=== PATIENT | female | born 1960 | race Two or more races ===

== ENCOUNTER → 2019-12-08 08:15 | Outpatient (BNVA) | payer OTHER, SELFPAY | PROVIDERS: Visit Provider Physician Assistant | DX: E66.9 Obesity, unspecified (principal); Z68.34 Body mass index [BMI] 34.0-34.9, adult; Z71.3 Dietary counseling and surveillance | CPT/HCPCS: 99213 ==

== ENCOUNTER → 2020-01-10 08:13 | Outpatient (BNVA) | payer OTHER, SELFPAY | PROVIDERS: PCP Internal Medicine; Referring Provider Internal Medicine; Visit Provider Physician Assistant | DX: E66.01 Morbid (severe) obesity due to excess calories (principal); Z68.36 Body mass index [BMI] 36.0-36.9, adult | CPT/HCPCS: Q3014 ==

== ENCOUNTER → 2020-02-14 08:14 | Outpatient (BNVA) | payer OTHER, MEDICARE, SELFPAY | PROVIDERS: Visit Provider Physician Assistant | DX: E66.01 Morbid (severe) obesity due to excess calories (principal); Z68.36 Body mass index [BMI] 36.0-36.9, adult | CPT/HCPCS: Q3014 ==

== ENCOUNTER 2020-02-14 17:24 | Outpatient (REF) | payer OTHER, MEDICARE, SELFPAY | END 2020-02-14 17:25 | disposition home or self-care (01) | LOC: HO.LAB 17:24 | PROVIDERS: Visit Provider Internal Medicine | DX: Z20.828 Contact with and (suspected) exposure to other viral communicable diseases (principal) | CPT/HCPCS: C9803; U0003 ==

== ENCOUNTER → 2020-02-21 15:16 | Outpatient (BNVA) | payer OTHER, MEDICARE, SELFPAY | PROVIDERS: PCP Internal Medicine; Visit Provider Student in an Organized Health Care Education/Training Program | DX: Z13.89 Encounter for screening for other disorder (principal) | CPT/HCPCS: Q3014 ==

== ENCOUNTER 2020-03-19 14:30 | Emergency (ER) | payer OTHER, SELFPAY ==
--- NOTE | 2020-03-19 14:35 | ECG_ITS ---
Test Reason : CHEST PAIN Blood Pressure : / mmHG Vent. Rate : 081 BPM Atrial Rate : 081 BPM P-R Int : 154 ms QRS Dur : 072 ms QT Int : 374 ms P-R-T Axes : 045 -19 001 degrees QTc Int : 434 ms Normal sinus rhythm Voltage criteria for left ventricular hypertrophy Abnormal ECG When compared with ECG of 10-NOV-2018 14:59, Nonspecific T wave abnormality no longer evident in Lateral leads Referred By: Generic ED Physician Electronically Signed By:GARCIA VALDIVIA MD
[2020-03-19 15:03] VITALS: BP 163/86; PULSE 82; RESP 16; TEMP 36.6; O2SAT 96; BMI 36.1
--- NOTE | 2020-03-19 15:04 | XR_ITS ---
EXAMINATION: XR CHEST CLINICAL INFORMATION: Chest pain COMPARISON: None TECHNIQUE: Frontal view of the chest was obtained. FINDINGS: No significant abnormality is noted involving the heart, lungs, mediastinum, bony thorax or soft tissues. XR/XR chest 1V IMPRESSION: Unremarkable chest examination.
--- NOTE | 2020-03-19 15:06 | ED_ITS ---
HPI - Chest Pain General Chief Complaint: Chest Pain Stated Complaint: BACK AND CHEST PAIN Time Seen by Provider: 03/19/20 15:04 Related Data Home Medications Medication Instructions Recorded Confirmed ascorbic acid (vitamin C) 500 mg mg PO DAILY cap 12/08/19 02/14/20 capsule aspirin 81 mg tablet,delayed 81 mg PO DAILY 12/08/19 02/14/20 release cholecalciferol (vitamin D3) 25 25 mcg PO DAILY 12/08/19 02/14/20 mcg (1,000 unit) capsule lisinopril 2.5 mg tablet 2.5 mg PO DAILY 12/08/19 02/14/20 loratadine 10 mg tablet 10 mg PO DAILY 12/08/19 02/14/20 simvastatin 10 mg tablet 10 mg PO BEDTIME 12/08/19 02/14/20 sumatriptan succinate 100 mg tablet 100 mg PO Q2-4H PRN 12/08/19 02/14/20 thiamine HCl (vitamin B1) 100 mg 100 mg PO DAILY 12/08/19 02/14/20 tablet verapamil 100 mg capsule 24hr 100 mg PO BEDTIME 12/08/19 02/14/[address],ext.release fluticasone propionate 50 1 spray INTRANASAL DAILY 12/29/19 02/14/20 mcg/actuation nasal spray,suspension Previous Rx's Medication Instructions Recorded albuterol sulfate 90 mcg/actuation 2 puff PO Q4H PRN #8.5 g 01/19/20 aerosol inhaler montelukast 10 mg tablet 10 mg PO DAILY #90 tab 03/19/20 Allergies Allergy/AdvReac Type Severity Reaction Status Date / Time hydrochlorothiazide Allergy Intermediate TRIGGERED Verified 02/21/20 15:17 [Hydrochlorothiazide] ASTHMA shellfish derived Allergy Unknown ANAPHYLAXIS Verified 02/21/20 15:17 [SHELLFISH DERIVED] [facility] Past Medical History Medical History (Updated 02/21/20 @ 15:19 by Gilson Garrett MD) Arthritis Asthma Carpal tunnel syndrome GERD (gastroesophageal reflux disease) Hypercholesterolemia Hypertension Lumbago with sciatica, left side Lumbar degenerative disc disease Migraine Type 2 diabetes mellitus with hyperglycemia Vitamin D deficiency Surgical History H/O thumb surgery Hallux valgus of right foot History of carpal tunnel release of both wrists History of oophorectomy, unilateral History of removal of ovarian cyst Hx of AMYIK Family History Family History Father Diabetes Stroke Mother Myocardial infarction CVD (cerebrovascular disease) Stroke Diabetes Maternal Aunt Myocardial infarction CVD (cerebrovascular disease) Paternal Uncle Prostate cancer Social History Social History (Updated 02/21/20 @ 15:19 by Rand Matias CMA) Alcohol intake: never Smoking Status: Never smoker Physical Exam Vital Signs: Vital Signs: Last Vital Signs Temp 98 F 03/19/20 15:03 Pulse 82 03/19/20 15:03 Resp 16 03/19/20 15:03 BP 163/86 H 03/19/20 15:03 Pulse Ox 96 03/19/20 15:03 Body Mass Index 36.1 Course Course Course Narrative: Patient presents to the ED with back/neck/ left sided chest pain with pain on inspiration. Rapid medical screening will be done. EKG ordered. History, physical exam, and decision making will be done by ED provider. Discharge Plan Discharge Prescriptions: No Action albuterol sulfate 90 mcg/actuation HFA aerosol inhaler 2 puff PO Q4H PRN (Reason: shortness of breath or wheezing) Qty: 8.5 RF: 2 montelukast 10 mg tablet 10 mg PO DAILY Qty: 90 RF: 1 fluticasone propionate [Flonase Allergy Relief] 50 mcg/actuation spray,suspension 1 spray intranasal DAILY RF: 0 loratadine [Allergy Relief (loratadine)] 10 mg tablet 10 mg PO DAILY RF: 0 lisinopril 2.5 mg tablet 2.5 mg PO DAILY RF: 0 aspirin [Adult Low Dose Aspirin] 81 mg tablet,delayed release (DR/EC) 81 mg PO DAILY RF: 0 verapamil 100 mg capsule, [address] 100 mg PO BEDTIME RF: 0 sumatriptan succinate [Imitrex] 100 mg tablet 100 mg PO Q2-4H PRNRF: 0 simvastatin 10 mg tablet 10 mg PO BEDTIME RF: 0 cholecalciferol (vitamin D3) 25 mcg (1,000 unit) capsule 25 mcg PO DAILY RF: 0 thiamine HCl (vitamin B1) 100 mg tablet 100 mg PO DAILY RF: 0 ascorbic acid (vitamin C) 500 mg capsule PO DAILY RF: 0
[2020-03-19 15:42] LABS: MANUAL DIFF FLAG NO
[2020-03-19 15:44] LABS: Basophils Percent Auto 0.3 % (0-2); Eosinophils Absolute Auto 0.4 X10*3/uL (0.0-0.4); Eosinophils Percent Auto 4.2 % (0-4); Hematocrit 37.1 % (37-47); Hemoglobin 12.1 g/dl (12.0-16.0); Imm Gran Abs Auto 0.03 X10*3/uL (0.00-0.03); Imm Gran Pct Auto 0.3 % (0.0-0.4); Lymphocytes Absolute Auto 2.1 X10*3/uL (1.2-4.9); Lymphocytes Percent Auto 22.1 % (20-40); Mean Corpuscular HGB Conc 32.6 g/dl (31.0-35.0); Mean Corpuscular Hemoglobin 28.8 pg (27.0-33.0); Mean Corpuscular Volume 88.3 fL (80-98); Mean Platelet Volume 9.4 fL (9.4-12.3); Monocytes Absolute Auto 0.8 X10*3/uL (0.1-1.2); Monocytes Percent Auto 8.2 % (2-11); Neutrophils Absolute Auto 6.2 X10*3/uL (2.0-8.3); Neutrophils Percent Auto 64.9 % (45-73); Platelet Count 314 X10*3/uL (160-400); Red Cell Distribution Width 12.2 % (11.0-16.0); White Blood Count 9.6 X10*3/uL (4.8-10.8)
[2020-03-19 15:52] LABS: Prothrombin Time 12.2 SEC (10.8-13.0)
[2020-03-19 15:55] LABS: D Dimer < 200 NG/ML
[2020-03-19 16:15] LABS: Alanine Aminotransferase 12 U/L (0-31); Albumin Level 4.2 g/dL (3.5-5.0); Alkaline Phosphatase 78 U/L (39-117); Anion Gap 12 (12-20); Aspartate Amino Transferase 15 U/L (5-31); Bilirubin Direct 0.2 mg/dL (0.0-0.5); Bilirubin Total 0.4 mg/dL (0.0-1.0); Blood Urea Nitrogen 14 mg/dL (9-16); Calcium 8.7 mg/dL (8.4-10.2); Carbon Dioxide 28 mmol/L (22-29); Chloride 106 mmol/L (96-108); Creatinine Clr Calc Pharmacy 87.3; Estimated Glomerular Filt Rate > 60; Glucose Random 124 mg/dL (60-115); Lactate Dehydrogenase 162 U/L (122-220); Potassium 4.1 mmol/L (3.3-5.1); Sodium 142 mmol/L (135-145); Total Protein 6.9 g/dL (6.5-8.0)
[2020-03-19 16:18] LABS: B Type Natriuretic Peptide 40 pg/mL (<100); Troponin-I High Sensitivity 3.6 ng/L (<3.5-17.0)
[2020-03-19 16:33] LABS: Procalcitonin < 0.02 ng/mL
[2020-03-19 16:36] LABS: Ferritin 108 ng/mL (10-250)
[2020-03-19 18:05] VITALS: BP 137/81; PULSE 69; RESP 16; O2SAT 97
--- NOTE | 2020-03-19 18:54 | ED_ITS ---
HPI - Chest Pain General Chief Complaint: Chest Pain Stated Complaint: BACK AND CHEST PAIN Time Seen by Provider: 03/19/20 15:04 Source: patient Mode of arrival: ambulatory Limitations: no limitations History of Present Illness HPI narrative: Patient comes emergency room complaining of chest pain for the last 48 hours. Patient states she started with the left-sided shoulder pain, left-sided neck pain, radiating towards the left side of the back, and upper chest pain. Patient states it hurts more when she turns her head towards the right. Patient has no shortness of breath. Patient states that it hurts more if she moves her left arm as well. Patient denies diaphoresis, no vomiting, no abdominal pain, coughing. Related Data Home Medications Medication Instructions Recorded Confirmed ascorbic acid (vitamin C) 500 mg mg PO DAILY cap 12/08/19 02/14/20 capsule aspirin 81 mg tablet,delayed 81 mg PO DAILY 12/08/19 02/14/20 release cholecalciferol (vitamin D3) 25 25 mcg PO DAILY 12/08/19 02/14/20 mcg (1,000 unit) capsule lisinopril 2.5 mg tablet 2.5 mg PO DAILY 12/08/19 02/14/20 loratadine 10 mg tablet 10 mg PO DAILY 12/08/19 02/14/20 simvastatin 10 mg tablet 10 mg PO BEDTIME 12/08/19 02/14/20 sumatriptan succinate 100 mg tablet 100 mg PO Q2-4H PRN 12/08/19 02/14/20 thiamine HCl (vitamin B1) 100 mg 100 mg PO DAILY 12/08/19 02/14/20 tablet verapamil 100 mg capsule 24hr 100 mg PO BEDTIME 12/08/19 02/14/[address],ext.release fluticasone propionate 50 1 spray INTRANASAL DAILY 12/29/19 02/14/20 mcg/actuation nasal spray,suspension Previous Rx's Medication Instructions Recorded albuterol sulfate 90 mcg/actuation 2 puff PO Q4H PRN #8.5 g 01/19/20 aerosol inhaler baclofen 10 mg PO BID #10 tab 03/19/20 montelukast 10 mg tablet 10 mg PO DAILY #90 tab 03/19/20 Allergies Allergy/AdvReac Type Severity Reaction Status Date / Time hydrochlorothiazide Allergy Intermediate TRIGGERED Verified 02/21/20 15:17 [Hydrochlorothiazide] ASTHMA shellfish derived Allergy Unknown ANAPHYLAXIS Verified 02/21/20 15:17 [SHELLFISH DERIVED] Review of Systems Review of Systems: Constitutional : No Weight loss, No Fever, No Chills, No Night Sweats, No Fatigue, No Malaise ENT/Mouth : No Hearing loss, No Ear Pain, No Nasal Congestion, No Sinus Pain, No Hoarseness, No sore throat, No Rhinorrhea, No Swallowing Difficulty Eyes: No Eye Pain, No Swelling, No Redness, No Foreign Body, No Discharge, No Vision Changes Cardiovascular : Upper left-sided chest pain, No SOB, No Dyspnea on Exertion, No Orthopnea, No Edema, No Palpitations Respiratory : No Cough, No Sputum, No Wheezing, No Smoke Exposure, No Dyspnea Gastrointestinal : No Nausea, No Vomiting, No Diarrhea, No Constipation, No abdominal Pain, No Hematochezia, No Melena Genitourinary : no irregular bleeding, No Dysuria, No Urinary Frequency, No Hematuria, No Urinary Incontinence, No Urgency, No Flank Pain, No Urinary Flow Changes, No Hesitancy Musculoskeletal : No joint pain, complaining of left shoulder pain, left upper back pain, left neck pain, worse with movement and rotating head towards the right Skin : No Skin Lesions, No rash Neuro : No Weakness, No Numbness, No Paresthesias, No Loss of Consciousness, No Dizziness, No Headache Psych : No Anxiety/Panic, No Depression, No SI/HI/AH/VH, No Social Issues, Heme/Lymph: No Bruising, No Bleeding,No Lymphadenopathy Endocrine : No Polyuria, No Polydipsia, No Temperature Intolerance [facility] Past Medical History Medical History Arthritis Asthma Carpal tunnel syndrome GERD (gastroesophageal reflux disease) Hypercholesterolemia Hypertension Lumbago with sciatica, left side Lumbar degenerative disc disease Migraine Type 2 diabetes mellitus with hyperglycemia Vitamin D deficiency Surgical History H/O thumb surgery Hallux valgus of right foot History of carpal tunnel release of both wrists History of oophorectomy, unilateral History of removal of ovarian cyst Hx of LASIK Family History Family History (Reviewed 02/21/20 @ 15:18 by Rand Matias [facility]) Father Diabetes Stroke Mother Myocardial infarction CVD (cerebrovascular disease) Stroke Diabetes Maternal Aunt Myocardial infarction CVD (cerebrovascular disease) Paternal Uncle Prostate cancer Social History Social History (Updated 02/21/20 @ 15:19 by Rand Matias CMA) Alcohol intake: never Smoking Status: Never smoker Advance Directives: No Advance Directives Information Provided: Yes Physical Exam Vital Signs: Vital Signs: Last Vital Signs Temp 98 F 03/19/20 15:03 Pulse 69 03/19/20 18:05 Resp 16 03/19/20 18:05 BP 137/81 03/19/20 18:05 Pulse Ox 97 03/19/20 18:05 Body Mass Index 36.1 Appearance: Alert. Oriented X3. No acute distress. Eyes: Pupils equal, round and reactive to light. ENT: Pharynx normal. Neck: Normal inspection. Neck supple. No lymph nodes noted. No crepitus, pain to palpation over the sternocleidomastoid on the left side when head is rotated towards the right CVS: Normal heart rate and rhythm. Pulses normal. Normal S1 and S2 Respiratory: No respiratory distress. Breath sounds normal. No Wheezing. No rales Abdomen: Soft and nontender. No rigidity. No distention. good BS x4 Skin: Skin warm and dry. Normal skin color. Normal skin turgor. Extremities: No lower extremity edema. No lower extremity edema. No Lacerations. No Rash Neuro: Oriented X 3. No motor deficit. No sensory deficit. Moving all extermities. No slurred speech. Course Course Course Narrative: I discussed the labs and physical exam with the patient, patient's pain likely musculoskeletal/torticollis MDM - Chest Pain Lab Data Result diagrams: 03/19/20 15:38 03/19/20 15:37 Labs: Lab Results 03/19/20 03/19/20 03/19/20 Range/Units 15:37 15:37 15:37 WBC (4.8-10.8) X10*3/uL RBC (4.20-5.50) X10*6/uL Hgb (12.0-16.0) g/dl Hct (37-47) % MCV (80-98) fL MCH (27.0-33.0) pg MCHC (31.0-35.0) g/dl RDW (11.0-16.0) % Plt Count (160-400) X10*3/uL MPV (9.4-12.3) fL Immature Gran % (Auto) (0.0-0.4) % Neut % (Auto) (45-73) % Lymph % (Auto) (20-40) % Banks % (Auto) (2-11) % Eos % (Auto) (0-4) % Baso % (Auto) (0-2) % Lymph # (Auto) (1.2-4.9) X10*3/uL Banks # (Auto) (0.1-1.2) X10*3/uL Eos # (Auto) (0.0-0.4) X10*3/uL Baso # (Auto) (0.0-0.2) X10*3/uL Abs Immat Gran (auto) (0.00-0.03) X10*3/uL Absolute Neuts (auto) (2.0-8.3) X10*3/uL Absolute Nucleated RBC (0.0-0.012) X10*3/uL Nucleated RBC % (auto) (0.0-0.2) /100WBC PT 12.2 (10.8-13.0) SEC INR 1.0 (0.9-1.1) APTT 35.0 (24.1-38.0) SEC D-Dimer < 200 NG/ML Sodium 142 (135-145) mmol/L Potassium 4.1 (3.3-5.1) mmol/L Chloride 106 (96-108) mmol/L Carbon Dioxide 28 (22-29) mmol/L Anion Gap 12 (12-20) BUN 14 (9-16) mg/dL Creatinine 0.65 (0.5-1.4) mg/dL Estim Creat Clear Calc 87.3 Estimated GFR > 60 Random Glucose 124 H (60-115) mg/dL Calcium 8.7 (8.4-10.2) mg/dL Ferritin 108 (10-250) ng/mL Total Bilirubin 0.4 (0.0-1.0) mg/dL Direct Bilirubin 0.2 (0.0-0.5) mg/dL AST 15 (5-31) U/L ALT 12 (0-31) U/L Alkaline Phosphatase 78 (39-117) U/L Lactate Dehydrogenase 162 (122-220) U/L Troponin I High Sens 3.6 (<3.5-17.0) ng/L B-Natriuretic Peptide 40 (<100) pg/mL Total Protein 6.9 (6.5-8.0) g/dL Albumin 4.2 (3.5-5.0) g/dL Procalcitonin ng/mL 03/19/20 03/19/20 Range/Units 15:37 15:38 WBC 9.6 (4.8-10.8) X10*3/uL RBC 4.20 (4.20-5.50) X10*6/uL Hgb 12.1 (12.0-16.0) g/dl Hct 37.1 (37-47) % MCV 88.3 (80-98) fL MCH 28.8 (27.0-33.0) pg MCHC 32.6 (31.0-35.0) g/dl RDW 12.2 (11.0-16.0) % Plt Count 314 (160-400) X10*3/uL MPV 9.4 (9.4-12.3) fL Immature Gran % (Auto) 0.3 (0.0-0.4) % Neut % (Auto) 64.9 (45-73) % Lymph % (Auto) 22.1 (20-40) % Banks % (Auto) 8.2 (2-11) % Eos % (Auto) 4.2 H (0-4) % Baso % (Auto) 0.3 (0-2) % Lymph # (Auto) 2.1 (1.2-4.9) X10*3/uL Banks # (Auto) 0.8 (0.1-1.2) X10*3/uL Eos # (Auto) 0.4 (0.0-0.4) X10*3/uL Baso # (Auto) 0.0 (0.0-0.2) X10*3/uL Abs Immat Gran (auto) 0.03 (0.00-0.03) X10*3/uL Absolute Neuts (auto) 6.2 (2.0-8.3) X10*3/uL Absolute Nucleated RBC 0.000 (0.0-0.012) X10*3/uL Nucleated RBC % (auto) 0.0 (0.0-0.2) /100WBC PT (10.8-13.0) SEC INR (0.9-1.1) APTT (24.1-38.0) SEC D-Dimer NG/ML Sodium (135-145) mmol/L Potassium (3.3-5.1) mmol/L Chloride (96-108) mmol/L Carbon Dioxide (22-29) mmol/L Anion Gap (12-20) BUN (9-16) mg/dL Creatinine (0.5-1.4) mg/dL Estim Creat Clear Calc Estimated GFR Random Glucose (60-115) mg/dL Calcium (8.4-10.2) mg/dL Ferritin (10-250) ng/mL Total Bilirubin (0.0-1.0) mg/dL Direct Bilirubin (0.0-0.5) mg/dL AST (5-31) U/L ALT (0-31) U/L Alkaline Phosphatase (39-117) U/L Lactate Dehydrogenase (122-220) U/L Troponin I High Sens (<3.5-17.0) ng/L B-Natriuretic Peptide (<100) pg/mL Total Protein (6.5-8.0) g/dL Albumin (3.5-5.0) g/dL Procalcitonin < 0.02 ng/mL Imaging Data Chest x-ray: Radiologist's impression: FINDINGS: No significant abnormality is noted involving the heart, lungs, mediastinum, bony thorax or soft tissues. XR/XR chest 1V IMPRESSION: Unremarkable chest examination. ECG Data ECG #1: Attestation: I personally reviewed and interpreted this ECG as follows: (Sinus rhythm, heart rate 81, QTC 434, no ST segment depressions or elevations, nonspecific T-wave inversions in lead 3) Scores Heart Score History: -0- slightly suspicious ECG: -0- normal Age: -1- >45 - <65 Risk factory: -1- 1 or 2 risk factors Troponin: -0- < or = normal limit Score: 2 Risk: 1.7% Discharge Plan Discharge Clinical Impression: Atypical chest pain Patient Disposition: Home, Self-Care Instructions: Spasmodic Torticollis (ED) Additional Instructions: Please follow-up with your primary care physician tomorrow. If you have any worsening or new symptoms, please return to the emergency room or call 911 Prescriptions: New baclofen 10 mg tablet 10 mg PO BID Qty: 10 RF: 0 No Action albuterol sulfate 90 mcg/actuation HFA aerosol inhaler 2 puff PO Q4H PRN (Reason: shortness of breath or wheezing) Qty: 8.5 RF: 2 montelukast 10 mg tablet 10 mg PO DAILY Qty: 90 RF: 1 fluticasone propionate [Flonase Allergy Relief] 50 mcg/actuation spray,suspension 1 spray intranasal DAILY RF: 0 loratadine [Allergy Relief (loratadine)] 10 mg tablet 10 mg PO DAILY RF: 0 lisinopril 2.5 mg tablet 2.5 mg PO DAILY RF: 0 aspirin [Adult Low Dose Aspirin] 81 mg tablet,delayed release (DR/EC) 81 mg PO DAILY RF: 0 verapamil 100 mg capsule, [address] 100 mg PO BEDTIME RF: 0 sumatriptan succinate [Imitrex] 100 mg tablet 100 mg PO Q2-4H PRNRF: 0 simvastatin 10 mg tablet 10 mg PO BEDTIME RF: 0 cholecalciferol (vitamin D3) 25 mcg (1,000 unit) capsule 25 mcg PO DAILY RF: 0 thiamine HCl (vitamin B1) 100 mg tablet 100 mg PO DAILY RF: 0 ascorbic acid (vitamin C) 500 mg capsule PO DAILY RF: 0
[2020-03-19 19:43] VITALS: BP 143/87; PULSE 68; RESP 26; O2SAT 97
== END 2020-03-19 20:26 | disposition home or self-care (01) ==
PROVIDERS: Physician Assistant; Emergency Provider Emergency Medicine; PCP Internal Medicine
DX: R07.89 Other chest pain (principal); G24.3 Spasmodic torticollis; I10 Essential (primary) hypertension; E11.9 Type 2 diabetes mellitus without complications; J45.909 Unspecified asthma, uncomplicated; Z79.899 Other long term (current) drug therapy; Z79.82 Long term (current) use of aspirin
CPT/HCPCS: 36415; 71045; 80053; 80076; 82248; 82728; 83615; 83880; 84145; 84484; 85025; 85379; 85610; 85730; 93005; 99283

== ENCOUNTER → 2020-03-20 08:17 | Outpatient (BNVA) | payer OTHER, SELFPAY | PROVIDERS: PCP Internal Medicine; Visit Provider Physician Assistant | DX: E66.01 Morbid (severe) obesity due to excess calories (principal); Z68.36 Body mass index [BMI] 36.0-36.9, adult | CPT/HCPCS: Q3014 ==

== ENCOUNTER 2020-04-09 14:53 | Outpatient (REF) | payer OTHER, SELFPAY ==
--- NOTE | ~2020-04-09 | XR_ITS ---
EXAMINATION: XR KNEE, RIGHT CLINICAL INFORMATION: Knee pain. COMPARISON: None TECHNIQUE: 2 views of the right knee. FINDINGS: Normal alignment. Marginal spurring in the medial and lateral compartment. Limited evaluation of the patellofemoral compartment on the lateral view. Small joint effusion. No acute fracture or dislocation is seen. There is chronic-appearing ossification along the lateral aspect of the distal femoral condyle/epicondyle, measuring approximately 3.9 cm craniocaudal, 1.2 cm transverse, incompletely evaluated on these views. XR/XR knee RT 2V IMPRESSION: 1. Mild degenerative spurring. Small effusion. 2. Chronic-appearing prominent ossification along the lateral aspect of the distal femoral condyle, measuring approximately 3.9 x 1.2 cm, incompletely evaluated on these views. This can be further evaluated with additional views of the knees, or with CT scan.
== END 2020-04-09 14:54 | disposition home or self-care (01) ==
LOC: HO.XRAY 14:53
PROVIDERS: PCP Internal Medicine; Visit Provider Internal Medicine
DX: M25.569 Pain in unspecified knee (principal)
CPT/HCPCS: 73560

== ENCOUNTER 2020-05-13 14:02 | Outpatient (REF) | payer OTHER, SELFPAY | END 2020-05-13 14:03 | disposition home or self-care (01) | LOC: HO.LAB 14:02 | PROVIDERS: Visit Provider Internal Medicine | DX: Z20.822 Contact with and (suspected) exposure to COVID-19 (principal) | CPT/HCPCS: 36415; C9803; U0003; U0005 ==

== ENCOUNTER → 2020-10-14 14:01 | Outpatient (BNVA) | payer OTHER, SELFPAY | PROVIDERS: PCP Internal Medicine; Referring Provider Internal Medicine; Visit Provider Physician Assistant | DX: Z12.11 Encounter for screening for malignant neoplasm of colon (principal) | CPT/HCPCS: 99202 ==

== ENCOUNTER 2020-12-03 10:50 | Day surgery (SDC) | payer OTHER, SELFPAY ==
[2020-11-28 09:20] VITALS: BMI 35.5
--- NOTE | 2020-12-02 13:11 | HO.ANESPROP2 ---
Documented by User: Sabrina Juan NP 12/02/20 13:19 HPI - Anesthesia Eval Consult details Narrative: 60yo F for Colonoscopy PMFSH Active Problems Active Problems: All Active Problems (Updated 10/17/20 @ 17:30 by Ara King MD) Bunion (Acute) Colon cancer screening (Acute) Knee pain (Acute) Lumbago with sciatica, left side (Acute) Allergy (Acute) Hypercholesterolemia (Acute) Type 2 diabetes mellitus with hyperglycemia (Acute) Lumbar degenerative disc disease (Acute) Migraine (Acute) GERD (gastroesophageal reflux disease) (Acute) Hypertension (Acute) Arthritis (Acute) Asthma (Acute) Obesity (Acute) Past Medical History Medical History Arthritis Asthma Carpal tunnel syndrome GERD (gastroesophageal reflux disease) Hypercholesterolemia Hypertension Lumbago with sciatica, left side Lumbar degenerative disc disease Migraine Type 2 diabetes mellitus with hyperglycemia Vitamin D deficiency Family History Family History Father Diabetes Stroke Mother Myocardial infarction CVD (cerebrovascular disease) Stroke Diabetes Maternal Aunt Myocardial infarction CVD (cerebrovascular disease) Paternal Uncle Prostate cancer Surgical History Surgical History H/O thumb surgery Hallux valgus of right foot History of carpal tunnel release of both wrists History of oophorectomy, unilateral History of removal of ovarian cyst Hx of colonoscopy Hx of LASIK Social History Social History Housing: House Alcohol intake: current Patient Tobacco Use Status: Never used Tobacco e-Cigarette/Vaping Use: Never Used Second Hand Smoke Exposure: No Advance Directives: No Advance Directives Information Provided: Yes service: No Current occupational status: disabled Meds Allergies Allergy/AdvReac Type Severity Reaction Status Date / Time hydrochlorothiazide Allergy Intermediate TRIGGERED Verified 11/06/20 12:44 [Hydrochlorothiazide] ASTHMA shellfish derived Allergy Unknown ANAPHYLAXIS Verified 11/06/20 12:44 [SHELLFISH DERIVED] Home Medications Medication Instructions Recorded Confirmed Last Taken Type ascorbic acid (vitamin C) 500 mg mg PO DAILY cap 12/08/19 10/14/20 Unknown History capsule aspirin 81 mg tablet,delayed 81 mg PO DAILY 12/08/19 10/14/20 11/30/20 History release (Adult Low Dose Aspirin) cholecalciferol (vitamin D3) 25 25 mcg PO DAILY 12/08/19 10/14/20 Unknown History mcg (1,000 unit) capsule loratadine 10 mg tablet (Allergy 10 mg PO DAILY 12/08/19 10/14/20 Unknown History Relief (loratadine)) sumatriptan succinate 100 mg 100 mg PO Q2-4H PRN 12/08/19 10/14/20 Unknown History tablet (Imitrex) thiamine HCl (vitamin B1) 100 mg 100 mg PO DAILY 12/08/19 10/14/20 Unknown History tablet verapamil 100 mg capsule 24hr 100 mg PO BEDTIME 11/06/20 11/06/[address],ext.release Exam Exam Date and Time: December 02, 2020 1311 Height,Weight and Vital Signs: Height 5 ft Weight 82.554 kg Pertinent Lab Results Pertinent Lab Results: Laboratory Tests 03/19/20 03/19/20 15:37 15:38 WBC 9.6 Hgb 12.1 Hct 37.1 Plt Count 314 Sodium 142 Potassium 4.1 Chloride 106 Carbon Dioxide 28 BUN 14 Creatinine 0.65 Assessment and Plan Assessment Anesthesia Assessment: Chart Reviewed Documented by User: Yulisa Garces MD 12/03/20 11:47 [facility] Past Medical History Medical History Arthritis Asthma Carpal tunnel syndrome GERD (gastroesophageal reflux disease) Hypercholesterolemia Hypertension Lumbago with sciatica, left side Lumbar degenerative disc disease Migraine Type 2 diabetes mellitus with hyperglycemia Vitamin D deficiency Family History Family History Father Diabetes Stroke Mother Myocardial infarction CVD (cerebrovascular disease) Stroke Diabetes Maternal Aunt Myocardial infarction CVD (cerebrovascular disease) Paternal Uncle Prostate cancer Surgical History Surgical History H/O thumb surgery Hallux valgus of right foot History of carpal tunnel release of both wrists History of oophorectomy, unilateral History of removal of ovarian cyst Hx of colonoscopy Hx of LASIK Social History Social History Housing: House Alcohol intake: current Patient Tobacco Use Status: Never used Tobacco e-Cigarette/Vaping Use: Never Used Second Hand Smoke Exposure: No Advance Directives: No Advance Directives Information Provided: Yes service: No Current occupational status: disabled Meds Allergies Allergy/AdvReac Type Severity Reaction Status Date / Time hydrochlorothiazide Allergy Intermediate TRIGGERED Verified 11/06/20 12:44 [Hydrochlorothiazide] ASTHMA shellfish derived Allergy Unknown ANAPHYLAXIS Verified 11/06/20 12:44 [SHELLFISH DERIVED] Home Medications Medication Instructions Recorded Confirmed Last Taken Type ascorbic acid (vitamin C) 500 mg mg PO DAILY cap 12/08/19 10/14/20 Unknown History capsule aspirin 81 mg tablet,delayed 81 mg PO DAILY 12/08/19 10/14/20 11/30/20 History release (Adult Low Dose Aspirin) cholecalciferol (vitamin D3) 25 25 mcg PO DAILY 12/08/19 10/14/20 Unknown History mcg (1,000 unit) capsule loratadine 10 mg tablet (Allergy 10 mg PO DAILY 12/08/19 10/14/20 Unknown History Relief (loratadine)) sumatriptan succinate 100 mg 100 mg PO Q2-4H PRN 12/08/19 10/14/20 Unknown History tablet (Imitrex) thiamine HCl (vitamin B1) 100 mg 100 mg PO DAILY 12/08/19 10/14/20 Unknown History tablet verapamil 100 mg capsule 24hr 100 mg PO BEDTIME 11/06/20 11/06/[address],ext.release Exam Airway Mallampati Class: III TM Dist: >3cm Neck ROM: Full
[2020-12-03 11:47] VITALS: BP 138/78; PULSE 78; RESP 18; TEMP 36.4; O2SAT 96; BMI 34.2
[2020-12-03] MEDS: Lactated Ringers 1,000 ML 100 ML IVCONT (11:55)
--- NOTE | 2020-12-03 12:39 | MHC.SHP ---
Pre-Procedural Eval Section A Date of Service: 12/03/20 The patient is an INPATIENT: No The History & Physical has been completed within 30 days and I have reviewed it.: No Section B Chief Complaint: screening Details of Present Illness: Colon cancer screening Relevant Family History (Specify if Yes): No Relevant Social History: None Present Medications: see Short Stay Collaborative assessment Medical History: Significant History (Arthritis Asthma Carpal tunnel syndrome GERD (gastroesophageal reflux disease) Hypercholesterolemia Hypertension Lumbago with sciatica, left side Lumbar degenerative disc disease Migraine Type 2 diabetes mellitus with hyperglycemia Vitamin D deficiency) History of Previous Operations: Relevant previous surgery/procedure and date(s) (H/O thumb surgery Hallux valgus of right foot History of carpal tunnel release of both wrists History of oophorectomy, unilateral History of removal of ovarian cyst Hx of colonoscopy Hx of LASIK) Allergies: Allergies Allergy/AdvReac Type Severity Reaction Status Date / Time hydrochlorothiazide Allergy Intermediate TRIGGERED Verified 11/06/20 12:44 [Hydrochlorothiazide] ASTHMA shellfish derived Allergy Unknown ANAPHYLAXIS Verified 11/06/20 12:44 [SHELLFISH DERIVED] Review of Systems Sugical H&P ROS: Negative: Constitution, Cardiovascular, Respiratory and Gastrointestinal Exam Surgical H&P Exam: Normal: Heart, Normal: Lungs, Normal: Extremities and Normal: Abdomen Plan Diagnosis/Plan: Unchanged I have reviewed the history and physical and performed a pertinent physical examination on my patient. No changes have occurred unless specified.
--- NOTE | 2020-12-03 12:46 | P.OP_ITS ---
Operative Note Operative Note Date of Service: 12/03/20 Narrative: Pre-op diagnosis:?Colon cancer screening Post-op diagnosis:?other (Diverticulosis, hemorrhoids) Procedure:? COLONOSCOPY TILL CECUM Consent: Indications for the procedure and potential complications of bleeding, perforation, reaction to medications and missed diagnosis were discussed with the patient and informed consent was obtained. Instrument: Olympus PCF H 190 L variable stiffness pediatric colonoscope Monitoring: Vital signs and clinical assessment, intermittent blood pressure monitoring, continuous EKG monitoring, Pulse oximetry and Carbon Dioxide monitoring were done throughout the procedure. Colon withdrawl time was 15 minutes. Procedure: The patient was placed in the left lateral decubitis position and pre-procedure medications were administered. After a digital rectal examination of the ano-rectum, the video colonoscope was inserted into the rectum and advanced through the colon to the cecum. The colonoscope was slowly withdrawn in a retrograde panoramic fashion and the colon mucosa was carefully examined including a retroflexed view of the rectum. Findings and interventions are described below. Procedure Difficulty:? LLQ pressure applied to intubate the cecum Findings: Terminal Ileum: Not evaluated Cecum:? Normal Ascending Colon:? Normal Transverse Colon:? Normal Descending Colon:? Normal Sigmoid Colon:? Moderate diverticulosis Rectum:? Normal Ano-rectum:? Moderate internal hemorrhoids Colon preparation: Good after copious irrigation. Impression and Post Procedure Diagnosis: Colonoscopy Findings: No polyps were detected Moderate diverticulosis seen in the sigmoid colon Moderate hemorrhoids on retroflexed exam. Plan: Patient has an appointment on 12/19/20 in the [facility] with KIRIT Rosa to cancel since patient is not having any GI symptoms. Repeat Colonoscopy in 10 years. Above findings were reviewed with the patient and diverticulosis handouts was given in the discharge area Surgeon:?Andrew Rizo MD Anesthesia:?MAC (Joann Murcia CRNA) Was an Internal Security Manager used for this Procedure?:?Yes Internal Security Manager:?Luz Maria Ramírez Estimated blood loss (mL):?0 Pathology:?none sent Condition:?stable Disposition:?PACU
[2020-12-03 13:25] VITALS: BP 111/56; PULSE 72; RESP 18; TEMP 37; O2SAT 98
[2020-12-03 13:40] VITALS: BP 121/80; PULSE 68; RESP 18; O2SAT 97
[2020-12-03 13:55] VITALS: BP 147/81; PULSE 66; RESP 18; TEMP 37; O2SAT 98
== END 2020-12-03 14:27 | disposition home or self-care (01) ==
PROVIDERS: PCP Internal Medicine; Visit Provider Internal Medicine Gastroenterology
PROC: 0DJD8ZZ Inspection of Lower Intestinal Tract, Via Natural or Artificial Opening Endoscopic (ICD-10-PCS; CPT 45378; principal; 2020-12-03 12:20)
DX: Z12.11 Encounter for screening for malignant neoplasm of colon (principal); K57.30 Diverticulosis of large intestine without perforation or abscess without bleeding; K64.8 Other hemorrhoids; I10 Essential (primary) hypertension; E11.65 Type 2 diabetes mellitus with hyperglycemia; J45.909 Unspecified asthma, uncomplicated; Z79.51 Long term (current) use of inhaled steroids; Z79.82 Long term (current) use of aspirin; Z79.899 Other long term (current) drug therapy; Z88.8 Allergy status to other drugs, medicaments and biological substances
CPT/HCPCS: G0121

== ENCOUNTER 2021-01-03 13:21 | Emergency (ER) | payer OTHER, SELFPAY ==
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
[2021-01-03 14:16] VITALS: BP 156/69; PULSE 18; RESP 18; TEMP 36.4; O2SAT 95; BMI 33.2
[2021-01-03] MEDS: Ibuprofen 600 MG TABLET PO (14:20)
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
[2021-01-03 16:19] VITALS: PULSE 92; RESP 17; O2SAT 98
[2021-01-03] MEDS: SUMAtriptan succinate 6 MG/0.5 ML VIAL SUBCUT (16:39)
[2021-01-03 19:00] VITALS: BP 152/86; PULSE 68; RESP 18; O2SAT 98
== END 2021-01-03 19:03 | disposition home or self-care (01) ==
PROVIDERS: Emergency Provider Emergency Medicine Emergency Medical Services; PCP Internal Medicine
DX: S06.0X9A Concussion with loss of consciousness of unspecified duration, initial encounter (principal); S13.4XXA Sprain of ligaments of cervical spine, initial encounter; V43.52XA Car driver injured in collision with other type car in traffic accident, initial encounter; Y93.89 Activity, other specified; Y92.414 Local residential or business street as the place of occurrence of the external cause; Y99.9 Unspecified external cause status
CPT/HCPCS: 70450; 72125; 96372; 99283; 99284; J3030

== ENCOUNTER 2021-02-06 08:02 | Outpatient (REF) | payer OTHER, SELFPAY ==
[2021-02-06 08:27] LABS: MANUAL DIFF FLAG NO
[2021-02-06 08:59] LABS: Basophils Percent Auto 0.5 % (0-2); Eosinophils Absolute Auto 0.4 X10*3/uL (0.0-0.4); Eosinophils Percent Auto 4.7 % (0-4); Hemoglobin 13.4 g/dl (12.0-16.0); Imm Gran Abs Auto 0.03 X10*3/uL (0.00-0.03); Imm Gran Pct Auto 0.4 % (0.0-0.4); Lymphocytes Absolute Auto 1.9 X10*3/uL (1.2-4.9); Lymphocytes Percent Auto 23.6 % (20-40); Mean Corpuscular HGB Conc 32.7 g/dl (31.0-35.0); Mean Corpuscular Hemoglobin 28.5 pg (27.0-33.0); Mean Corpuscular Volume 87.2 fL (80.0-98.0); Mean Platelet Volume 9.9 fL (9.4-12.3); Monocytes Absolute Auto 0.7 X10*3/uL (0.1-1.2); Monocytes Percent Auto 9.3 % (2-11); Neutrophils Absolute Auto 4.9 x10*3/uL (2.0-8.3); Neutrophils Percent Auto 61.5 % (45-73); Platelet Count 310 X10*3/uL (160-400); Red Cell Distribution Width 11.9 % (11.0-16.0); White Blood Count 7.9 X10*3/uL (4.8-10.8)
[2021-02-06 09:14] LABS: Alanine Aminotransferase 18 U/L (0-31); Albumin Level 4.4 g/dL (3.5-5.0); Alkaline Phosphatase 73 U/L (39-117); Anion Gap 10 (12-20); Aspartate Amino Transferase 19 U/L (5-31); Bilirubin Total 1.4 mg/dL (0.0-1.0); Blood Urea Nitrogen 12 mg/dL (9-16); Calcium 9.9 mg/dL (8.4-10.2); Carbon Dioxide 31 mmol/L (22-29); Chloride 104 mmol/L (96-108); Cholesterol 151 mg/dL; Estimated Glomerular Filt Rate > 60; Glucose Random 128 mg/dL (60-115); HDL Cholesterol 51 mg/dL; LDL Cholesterol Calculated 79 mg/dl; Potassium 4.3 mmol/L (3.3-5.1); Sodium 141 mmol/L (135-145); Total Protein 7.5 g/dL (6.5-8.0); Triglycerides 108 mg/dL
[2021-02-06 09:35] LABS: Free T4 (Free Thyroxine) 0.72 ng/dL (0.71-1.85); Thyroid Stimulating Hormone 1.64 uIU/mL (0.32-4.0); Vitamin D 25-OH Total 24.3 ng/mL (>30)
[2021-02-06 09:38] LABS: Creatinine Urine 75.55 mg/dL; Microalbum/Creatinine Ratio Ur 10.5 ug/mg cr
[2021-02-06 09:51] LABS: Folate 15.5 ng/mL (> or = 4.0); Vitamin B12 876 pg/mL (200-900)
== END 2021-02-06 08:03 | disposition home or self-care (01) ==
LOC: HO.LAB 08:02
PROVIDERS: PCP Internal Medicine; Visit Provider Internal Medicine
DX: E11.65 Type 2 diabetes mellitus with hyperglycemia (principal); I10 Essential (primary) hypertension; E78.00 Pure hypercholesterolemia, unspecified; K21.9 Gastro-esophageal reflux disease without esophagitis
CPT/HCPCS: 36415; 80053; 80061; 82043; 82306; 82607; 82746; 84439; 84443; 85025

== ENCOUNTER 2021-03-19 08:44 | Outpatient (REF) | payer OTHER, SELFPAY ==
--- NOTE | 2021-03-19 08:51 | ECG_ITS ---
Test Reason : Z01.818 Blood Pressure : / mmHG Vent. Rate : 075 BPM Atrial Rate : 075 BPM P-R Int : 160 ms QRS Dur : 070 ms QT Int : 382 ms P-R-T Axes : 054 -09 016 degrees QTc Int : 426 ms Normal sinus rhythm Minimal voltage criteria for LVH, may be normal variant ( R in aVL ) Borderline ECG When compared with ECG of 19-MAR-2020 14:34, No significant change was found Referred By: Hina Peters Electronically Signed By:LUKE NIX
[2021-03-19 09:32] LABS: Hematocrit 41.4 % (37.0-47.0); Hemoglobin 13.1 g/dl (12.0-16.0); Mean Corpuscular HGB Conc 31.6 g/dl (31.0-35.0); Mean Corpuscular Hemoglobin 27.9 pg (27.0-33.0); Mean Corpuscular Volume 88.3 fL (80.0-98.0); Mean Platelet Volume 9.6 fL (9.4-12.3); Platelet Count 327 X10*3/uL (160-400); Red Blood Count 4.69 X10*6/uL (4.20-5.50); Red Cell Distribution Width 12.3 % (11.0-16.0); White Blood Count 8.9 X10*3/uL (4.8-10.8)
[2021-03-19 09:37] LABS: INTERNATIONAL NORM RATIO 1.1 (0.9-1.1); Prothrombin Time 12.1 SEC (9.9-13.0)
[2021-03-19 09:39] LABS: Partial Thromboplastin Time 37.4 SEC (24.1-38.0)
[2021-03-19 10:03] LABS: Alanine Aminotransferase 17 U/L (0-31); Albumin Level 4.5 g/dL (3.5-5.0); Alkaline Phosphatase 74 U/L (39-117); Anion Gap 12 (12-20); Aspartate Amino Transferase 18 U/L (5-31); Bilirubin Total 1.1 mg/dL (0.0-1.0); Blood Urea Nitrogen 14 mg/dL (9-16); Calcium 9.8 mg/dL (8.4-10.2); Carbon Dioxide 31 mmol/L (22-29); Chloride 103 mmol/L (96-108); Estimated Glomerular Filt Rate > 60; Glucose Fasting 132 mg/dL (60-99); Potassium 5.1 mmol/L (3.3-5.1); Sodium 141 mmol/L (135-145); Total Protein 7.7 g/dL (6.5-8.0)
== END 2021-03-19 08:45 | disposition home or self-care (01) ==
LOC: HO.LAB 08:44
PROVIDERS: PCP Internal Medicine; Visit Provider Nurse Practitioner Family
DX: Z01.818 Encounter for other preprocedural examination (principal); E78.00 Pure hypercholesterolemia, unspecified
CPT/HCPCS: 36415; 80053; 85027; 85610; 85730; 93005

== ENCOUNTER 2022-01-27 16:39 | Outpatient (REF) | payer OTHER, SELFPAY ==
[2022-01-27 17:40] LABS: Influenza A PCR NEGATIVE (Negative); Influenza B PCR NEGATIVE (Negative); Resp Syncy Virus RNA Qual PCR NEGATIVE (Negative); SARS COV2 PCR INHOUSE NEGATIVE (Negative)
== END 2022-01-27 16:40 | disposition home or self-care (01) ==
LOC: HO.LNP 16:39
PROVIDERS: Visit Provider Physician Assistant
DX: Z20.822 Contact with and (suspected) exposure to COVID-19 (principal); B34.9 Viral infection, unspecified
CPT/HCPCS: 0241U

== ENCOUNTER 2022-03-11 13:57 | Outpatient (REF) | payer OTHER, SELFPAY ==
[2022-03-11 16:45] LABS: Hematocrit 38.9 % (37.0-47.0); Hemoglobin 12.6 g/dl (12.0-16.0); Mean Corpuscular HGB Conc 32.4 g/dl (31.0-35.0); Mean Corpuscular Hemoglobin 28.7 pg (27.0-33.0); Mean Corpuscular Volume 88.6 fL (80.0-98.0); Mean Platelet Volume 9.9 fL (9.4-12.3); Platelet Count 348 X10*3/uL (160-400); Red Blood Count 4.39 X10*6/uL (4.20-5.50); Red Cell Distribution Width 12.2 % (11.0-16.0)
== END 2022-03-11 13:58 | disposition home or self-care (01) ==
LOC: HO.HMGCLDS 13:57
PROVIDERS: PCP Internal Medicine; Visit Provider Internal Medicine
DX: S30.1XXA Contusion of abdominal wall, initial encounter (principal)
CPT/HCPCS: 36415; 85027

== ENCOUNTER 2022-03-25 08:36 | Outpatient (REF) | payer OTHER, SELFPAY ==
[2022-03-25 08:48] LABS: MANUAL DIFF FLAG NO
[2022-03-25 09:27] LABS: Basophils Percent Auto 0.5 % (0-2); Eosinophils Absolute Auto 0.3 X10*3/uL (0.0-0.4); Eosinophils Percent Auto 3.4 % (0-4); Hematocrit 40.8 % (37.0-47.0); Hemoglobin 13.4 g/dl (12.0-16.0); Imm Gran Abs Auto 0.03 X10*3/uL (0.00-0.03); Imm Gran Pct Auto 0.4 % (0.0-0.4); Lymphocytes Absolute Auto 2.1 X10*3/uL (1.2-4.9); Lymphocytes Percent Auto 24.5 % (20-40); Mean Corpuscular HGB Conc 32.8 g/dl (31.0-35.0); Mean Corpuscular Volume 88.3 fL (80.0-98.0); Mean Platelet Volume 9.8 fL (9.4-12.3); Monocytes Absolute Auto 0.7 X10*3/uL (0.1-1.2); Monocytes Percent Auto 8.2 % (2-11); Neutrophils Absolute Auto 5.3 x10*3/uL (2.0-8.3); Platelet Count 338 X10*3/uL (160-400); Red Blood Count 4.62 X10*6/uL (4.20-5.50); Red Cell Distribution Width 12.3 % (11.0-16.0); White Blood Count 8.4 X10*3/uL (4.8-10.8)
[2022-03-25 09:34] LABS: Estimated Average Glucose 154 mg/dL
[2022-03-25 10:16] LABS: Creatinine Urine 106.64 mg/dL; Microalbum/Creatinine Ratio Ur 13.1 ug/mg cr
[2022-03-25 10:18] LABS: Alanine Aminotransferase 17 U/L (0-31); Albumin Level 4.6 g/dL (3.5-5.0); Alkaline Phosphatase 72 U/L (39-117); Anion Gap 17 (12-20); Aspartate Amino Transferase 16 U/L (5-31); Bilirubin Total 0.9 mg/dL (0.0-1.0); Blood Urea Nitrogen 21 mg/dL (9-16); Calcium 9.5 mg/dL (8.4-10.2); Carbon Dioxide 25 mmol/L (22-29); Chloride 104 mmol/L (96-108); Cholesterol 196 mg/dL; Estimated Glomerular Filt Rate > 60; Glucose Random 132 mg/dL (60-115); HDL Cholesterol 50 mg/dL; LDL Cholesterol Calculated 121 mg/dl; Potassium 4.6 mmol/L (3.3-5.1); Sodium 141 mmol/L (135-145); Total Protein 7.4 g/dL (6.5-8.0); Triglycerides 125 mg/dL
[2022-03-25 10:50] LABS: Folate 14.9 ng/mL (> or = 4.0); Free T4 (Free Thyroxine) 0.68 ng/dL (0.71-1.85); Thyroid Stimulating Hormone 1.15 uIU/mL (0.32-4.0); Vitamin B12 650 pg/mL (200-900); Vitamin D 25-OH Total 23.8 ng/mL (>30)
== END 2022-03-25 08:37 | disposition home or self-care (01) ==
LOC: HO.LAB 08:36
PROVIDERS: PCP Internal Medicine; Visit Provider Internal Medicine
DX: E11.65 Type 2 diabetes mellitus with hyperglycemia (principal); E78.00 Pure hypercholesterolemia, unspecified
CPT/HCPCS: 36415; 80053; 80061; 82043; 82306; 82607; 82746; 83036; 84439; 84443; 85025

== ENCOUNTER 2022-10-21 14:59 | Outpatient (AMB) | payer OTHER, SELFPAY ==
[2022-10-21 15:04] VITALS: BP 104/80; PULSE 90; O2SAT 96; BMI 35.0
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
== END 2022-10-21 15:31 | disposition home or self-care (01) ==
PROVIDERS: PCP Internal Medicine; Visit Provider Nurse Practitioner Family
DX: E11.65 Type 2 diabetes mellitus with hyperglycemia (principal)
CPT/HCPCS: 83036; 99213

== ENCOUNTER 2022-10-23 14:01 | Outpatient (AMB) | payer OTHER, SELFPAY ==
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
[2022-10-23 14:05] VITALS: BP 132/80; PULSE 81; O2SAT 99; BMI 35.3
== END 2022-10-23 15:03 | disposition home or self-care (01) ==
PROVIDERS: Visit Provider Internal Medicine
DX: K21.9 Gastro-esophageal reflux disease without esophagitis (principal); I10 Essential (primary) hypertension; E66.01 Morbid (severe) obesity due to excess calories; Z68.36 Body mass index [BMI] 36.0-36.9, adult; E11.65 Type 2 diabetes mellitus with hyperglycemia; H26.9 Unspecified cataract; E78.00 Pure hypercholesterolemia, unspecified
CPT/HCPCS: 99214

== ENCOUNTER 2022-10-30 12:16 | Outpatient (AMB) | payer OTHER, SELFPAY ==
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
[2022-10-30 12:35] VITALS: BP 140/82; PULSE 80; TEMP 36.2; O2SAT 95
== END 2022-10-30 13:26 | disposition home or self-care (01) ==
PROVIDERS: PCP Internal Medicine; Visit Provider Physician Assistant
DX: J45.20 Mild intermittent asthma, uncomplicated (principal)
CPT/HCPCS: 99213

== ENCOUNTER 2022-10-30 12:46 | Outpatient (REF) | payer OTHER, SELFPAY ==
[2022-10-30 13:21] LABS: Binax Internal Control QC Valid; Binax Now Covid-19 Ag Negative (Negative); Binax Performed by: PAULP
== END 2022-10-30 12:47 | disposition home or self-care (01) ==
LOC: HO.HMGCLDS 12:46
PROVIDERS: PCP Internal Medicine; Visit Provider Physician Assistant
DX: Z20.822 Contact with and (suspected) exposure to COVID-19 (principal); J45.909 Unspecified asthma, uncomplicated
CPT/HCPCS: 87811; C9803

== ENCOUNTER 2022-11-02 06:07 | Day surgery (SDC) | payer OTHER, SELFPAY ==
[2022-10-21 17:40] LABS: Hematocrit 37.2 % (37.0-47.0); Hemoglobin 12.3 g/dl (12.0-16.0); Mean Corpuscular HGB Conc 33.1 g/dl (31.0-35.0); Mean Corpuscular Hemoglobin 29.3 pg (27.0-33.0); Mean Corpuscular Volume 88.6 fL (80.0-98.0); Mean Platelet Volume 9.7 fL (9.4-12.3); Platelet Count 349 X10*3/uL (160-400); White Blood Count 9.9 X10*3/uL (4.8-10.8)
[2022-10-21 17:45] LABS: Prothrombin Time 11.6 SEC (11.1-13.3)
[2022-10-21 18:56] LABS: Anion Gap 15 (12-20); Blood Urea Nitrogen 18 mg/dL (9-16); Carbon Dioxide 29 mmol/L (22-29); Chloride 104 mmol/L (96-108); Estimated Glomerular Filt Rate 55; Glucose Random 140 mg/dL (60-115); Sodium 144 mmol/L (135-145)
[2022-10-21 19:05] LABS: TSH reflex Free T4 0.93 uIU/mL (0.32-4.0)
--- NOTE | 2022-10-22 13:06 | ECG_ITS ---
Test Reason : PRE-OP Blood Pressure : / mmHG Vent. Rate : 084 BPM Atrial Rate : 084 BPM P-R Int : 152 ms QRS Dur : 072 ms QT Int : 340 ms P-R-T Axes : 054 -13 -31 degrees QTc Int : 401 ms Normal sinus rhythm Minimal voltage criteria for LVH, may be normal variant ( R in aVL ) Nonspecific T wave abnormality Abnormal ECG When compared with ECG of 19-MAR-2021 09:06, Nonspecific T wave abnormality now evident in Lateral leads Referred By: Aileen Lerma Electronically Signed By:SAL GREGORY
[2022-10-28 09:10] VITALS: BMI 35.0
--- NOTE | 2022-10-30 08:02 | MHC.SHP ---
Pre-Procedural Eval Section A Date of Service: 10/30/22 The patient is an INPATIENT: No Changes since office visit: No Cold of Flu in the past 2 weeks, No New Medical Problems, No Changes in Medication and No Patient answered all questions The History & Physical has been completed within 30 days and I have reviewed it.: Yes Section B Chief Complaint: Age-related nuclear cataract, right eye Allergies: Allergies Allergy/AdvReac Type Severity Reaction Status Date / Time shellfish derived Allergy Severe ANAPHYLAXIS Verified 10/28/22 08:47 [SHELLFISH DERIVED] hydrochlorothiazide Allergy Intermediate TRIGGERED Verified 10/23/22 14:05 [Hydrochlorothiazide] ASTHMA Plan Diagnosis/Plan: Unchanged I have reviewed the history and physical and performed a pertinent physical examination on my patient. No changes have occurred unless specified. Time Spent With Patient Time: Total time managing care of this patient today ____ minutes.
[2022-11-02 06:39] LABS: Glucose, Whole Blood 90 mg/dL (60-115)
[2022-11-02 06:56] VITALS: BP 168/87; PULSE 78; RESP 20; TEMP 36.6; O2SAT 98
[2022-11-02] MEDS: Tropicamide 1 % Ophth Sol 3 ML BTL 1 DROP EYE-RIGHT ×3 (07:00→07:02)
[2022-11-02] MEDS: Tetracaine HCl/PF 0.5% Oph Sol 4 ML DROPS 1 DROP EYE-RIGHT (07:00)
[2022-11-02] MEDS: Cyclopentolate 1 % Ophth Sol 2 ML DRPBTL 1 DROP EYE-RIGHT ×3 (07:00→07:02)
[2022-11-02] MEDS: Phenylephrine HCL 2.5% Oph SoL 2 ML BOTTLE 1 DROP EYE-RIGHT ×3 (07:00→07:02)
[2022-11-02] MEDS: Ketorolac Tromethamine 0.5% Op 5 ML DROPS 1 DROP EYE-RIGHT ×3 (07:00→07:02)
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
--- NOTE | 2022-11-02 07:22 | HO.PNOPHT ---
Ophthalmology Procedure Procedure Date of Service: 11/02/22 Ophthalmology Viscoelastic: Healon Duet Dual Pack Pro Ophthalmology Lenses: TECNIS [id number] (24.5) Procedure Notes: PREOPERATIVE DIAGNOSIS: Decreased visual acuity right eye secondary to cataract POSTOPERATIVE DIAGNOSIS: Same PROCEDURE: Right cataract extraction with intraocular lens insertion SURGEON: Julius Miles M.D. ANESTHESIA: Topical/MAC ESTIMATED BLOOD LOSS: None COMPLICATIONS: None After obtaining informed consent, the patient was brought to the operating room suite and placed in the supine position. After adequate sedation per anesthesia, topical drops of Tetracaine were given to the right eye. The eye was then prepped and draped in the usual sterile fashion. The operating room microscope was then positioned over the operative eye and a lid speculum placed. A paracentesis was created. Viscoelastic was then instilled into the anterior chamber. A three plane incision was then created temporally, utilizing a 2.85 mm keratome. Capsulotomy forceps were then utilized to create a circular tear capsulotomy. Hydrodissection and hydrodelineation were carried out until adequate mobilization of the nucleus occurred. Phacoemulsification was then utilized to remove the dense central nucleus followed by removal of the cortical material utilizing the automated aspiration irrigation unit. Viscoelastic was instilled into the posterior capsular bag followed by placement of a posterior chamber intraocular lens without difficulty. The residual Viscoelastic was then removed utilizing the automated IA machine. The wound was checked and found to be watertight. The patient tolerated the procedure well and the lid speculum was removed. Intracameral injection of Vigamox 0.1 mL followed by a subtenon injection of Kenalog-40 0.2 mL were administered. The patient will be seen in the a.m.
[2022-11-02 07:48] VITALS: BP 174/93; PULSE 77; RESP 12; TEMP 36.6; O2SAT 99
== END 2022-11-02 08:04 | disposition home or self-care (01) ==
PROVIDERS: Nurse Practitioner Family; PCP Internal Medicine; Visit Provider Ophthalmology
PROC: (CPT 66985; principal; 2022-11-02 07:30)
DX: H25.11 Age-related nuclear cataract, right eye (principal); H54.7 Unspecified visual loss; Z01.818 Encounter for other preprocedural examination; E11.9 Type 2 diabetes mellitus without complications; I10 Essential (primary) hypertension; E78.00 Pure hypercholesterolemia, unspecified; K21.9 Gastro-esophageal reflux disease without esophagitis; J45.909 Unspecified asthma, uncomplicated; E55.9 Vitamin D deficiency, unspecified; Z79.84 Long term (current) use of oral hypoglycemic drugs; Z79.899 Other long term (current) drug therapy
CPT/HCPCS: 66984; 36415; 80048; 82947; 84443; 85027; 85610; 93005; J2250; J3010; J3301; V2632

== ENCOUNTER 2023-01-22 16:06 | Outpatient (AMB) | payer OTHER, SELFPAY ==
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
[2023-01-22 16:18] VITALS: BP 130/80; PULSE 81; TEMP 36.2; O2SAT 98; BMI 35.2
== END 2023-01-22 16:36 | disposition home or self-care (01) ==
PROVIDERS: PCP Internal Medicine; Visit Provider Physician Assistant
DX: J45.20 Mild intermittent asthma, uncomplicated (principal)
CPT/HCPCS: 99213

== ENCOUNTER 2023-02-03 09:59 | Outpatient (AMB) | payer OTHER, SELFPAY ==
[2023-02-03 10:07] VITALS: BP 140/84; PULSE 86; O2SAT 98; BMI 35.6
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
== END 2023-02-03 10:51 | disposition home or self-care (01) ==
PROVIDERS: PCP Internal Medicine; Visit Provider Internal Medicine
DX: E11.65 Type 2 diabetes mellitus with hyperglycemia (principal); E78.00 Pure hypercholesterolemia, unspecified; E66.01 Morbid (severe) obesity due to excess calories; Z68.36 Body mass index [BMI] 36.0-36.9, adult; I10 Essential (primary) hypertension; K21.9 Gastro-esophageal reflux disease without esophagitis; J45.20 Mild intermittent asthma, uncomplicated
CPT/HCPCS: 83036; 99214

== ENCOUNTER 2023-03-05 15:56 | Outpatient (AMB) | payer OTHER, SELFPAY ==
[2023-03-05 16:15] VITALS: BP 120/74; PULSE 77; O2SAT 95; BMI 35.4
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
== END 2023-03-05 17:07 | disposition home or self-care (01) ==
PROVIDERS: PCP Internal Medicine; Visit Provider Internal Medicine
DX: Z00.00 Encounter for general adult medical examination without abnormal findings (principal); E11.65 Type 2 diabetes mellitus with hyperglycemia; E66.01 Morbid (severe) obesity due to excess calories; Z23 Encounter for immunization; K21.9 Gastro-esophageal reflux disease without esophagitis; I10 Essential (primary) hypertension; E78.00 Pure hypercholesterolemia, unspecified; Z68.36 Body mass index [BMI] 36.0-36.9, adult; Z12.31 Encounter for screening mammogram for malignant neoplasm of breast; H61.23 Impacted cerumen, bilateral; B35.3 Tinea pedis; J45.20 Mild intermittent asthma, uncomplicated
CPT/HCPCS: 90471; 90686; 99396

== ENCOUNTER 2023-03-08 13:15 | Outpatient (REF) | payer OTHER, SELFPAY ==
[2023-03-11 07:43] LABS: TS Negative Control Passed; TS Panel A 0; TS Panel B 0; TS Positive Control Passed; TSpotTB Negative (Negative)
== END 2023-03-08 13:16 | disposition home or self-care (01) ==
LOC: HO.LAB 13:15
PROVIDERS: PCP Internal Medicine; Visit Provider Internal Medicine
DX: Z11.1 Encounter for screening for respiratory tuberculosis (principal)
CPT/HCPCS: 36415; 86481

== ENCOUNTER 2023-05-06 08:52 | Outpatient (REF) | payer OTHER, SELFPAY ==
[2023-05-06 09:10] LABS: MANUAL DIFF FLAG NO
[2023-05-06 10:20] LABS: Basophils Percent Auto 0.5 % (0-2); Eosinophils Absolute Auto 0.3 X10*3/uL (0.0-0.4); Eosinophils Percent Auto 3.2 % (0-4); Hematocrit 39.1 % (37.0-47.0); Hemoglobin 12.8 g/dl (12.0-16.0); Imm Gran Abs Auto 0.04 X10*3/uL (0.00-0.03); Imm Gran Pct Auto 0.5 % (0.0-0.4); Lymphocytes Percent Auto 23.1 % (20-40); Mean Corpuscular HGB Conc 32.7 g/dl (31.0-35.0); Mean Corpuscular Hemoglobin 28.8 pg (27.0-33.0); Mean Corpuscular Volume 88.1 fL (80.0-98.0); Mean Platelet Volume 9.6 fL (9.4-12.3); Monocytes Absolute Auto 0.8 X10*3/uL (0.1-1.2); Monocytes Percent Auto 8.6 % (2-11); Neutrophils Absolute Auto 5.6 x10*3/uL (2.0-8.3); Neutrophils Percent Auto 64.1 % (45-73); Platelet Count 327 X10*3/uL (160-400); Red Blood Count 4.44 X10*6/uL (4.20-5.50); Red Cell Distribution Width 12.4 % (11.0-16.0); White Blood Count 8.8 X10*3/uL (4.8-10.8)
[2023-05-06 11:06] LABS: Alanine Aminotransferase 17 U/L (0-31); Albumin Level 4.5 g/dL (3.5-5.0); Alkaline Phosphatase 73 U/L (39-117); Anion Gap 15 (12-20); Aspartate Amino Transferase 16 U/L (5-31); Blood Urea Nitrogen 16 mg/dL (9-16); Calcium 9.5 mg/dL (8.4-10.2); Carbon Dioxide 27 mmol/L (22-29); Chloride 105 mmol/L (96-108); Cholesterol 133 mg/dL (<200); Estimated Glomerular Filt Rate > 60; Glucose Random 131 mg/dL (60-115); HDL Cholesterol 51 mg/dL (>40); LDL Cholesterol Calculated 64 mg/dL (<100); Potassium 4.1 mmol/L (3.3-5.1); Sodium 143 mmol/L (135-145); Total Protein 7.4 g/dL (6.5-8.0); Triglycerides 92 mg/dL (<150)
[2023-05-06 11:11] LABS: Free T4 (Free Thyroxine) 0.77 ng/dL (0.71-1.85); Thyroid Stimulating Hormone 1.19 uIU/mL (0.32-4.0); Vitamin D 25-OH Total 27.9 ng/mL (>30)
[2023-05-06 11:17] LABS: Folate 13.8 ng/mL (> or = 4.0); Vitamin B12 710 pg/mL (200-900)
[2023-05-06 11:53] LABS: Creatinine Urine 82.17 mg/dL; Microalbum/Creatinine Ratio Ur 30.4 ug/mg cr (<30)
== END 2023-05-06 08:53 | disposition home or self-care (01) ==
LOC: HO.LAB 08:52
PROVIDERS: PCP Internal Medicine; Visit Provider Internal Medicine
DX: E11.65 Type 2 diabetes mellitus with hyperglycemia (principal); E78.00 Pure hypercholesterolemia, unspecified
CPT/HCPCS: 36415; 80053; 80061; 82043; 82306; 82570; 82607; 82746; 84439; 84443; 85025

== ENCOUNTER 2023-05-12 09:56 | Outpatient (AMB) | payer OTHER, SELFPAY ==
[2023-05-12 10:13] VITALS: BP 140/80; PULSE 84; O2SAT 98; BMI 35.7
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
== END 2023-05-12 11:03 | disposition home or self-care (01) ==
PROVIDERS: PCP Internal Medicine; Visit Provider Internal Medicine
DX: E11.65 Type 2 diabetes mellitus with hyperglycemia (principal); E66.01 Morbid (severe) obesity due to excess calories; Z68.36 Body mass index [BMI] 36.0-36.9, adult; I10 Essential (primary) hypertension; K21.9 Gastro-esophageal reflux disease without esophagitis; E78.00 Pure hypercholesterolemia, unspecified; J45.20 Mild intermittent asthma, uncomplicated; Z12.31 Encounter for screening mammogram for malignant neoplasm of breast; M85.80 Other specified disorders of bone density and structure, unspecified site
CPT/HCPCS: 83036; 99214

== ENCOUNTER 2023-05-25 10:59 | Outpatient (REF) | payer OTHER, SELFPAY ==
--- NOTE | ~2023-05-25 | MM_ITS ---
EXAMINATION: BONE DENSITOMETRY CLINICAL INDICATION: Age-related osteoporosis without current pathological fracture. COMPARISON: Previous BD dated 10/20/2018 and baseline BD dated 07/18/2009. TECHNIQUE: Using a [employer] DXA System (software version: 13.1) manufactured by [employer], dual-energy x-ray absorptiometry was performed of the lumbar spine and left hip. The images are of good technical quality. Summary results are attached. FINDINGS: LEFT FEMUR, NECK: Current: BMD 1.135 g/cm2, Z-score 1.8, T-score 0.7, normal. Prior: BMD 1.129 g/cm2. Baseline: BMD 1.206 g/cm2. LEFT FEMUR, TOTAL: Current: BMD 1.207 g/cm2, Z-score 2.4, T-score 1.6, normal, 1.5% increase from previous, 7.8% decrease from baseline (<5% change is not significant). Prior: BMD 1.189 g/cm2. Baseline: BMD 1.309 g/cm2. AP SPINE L1-L4: Current: BMD 0.969 g/cm2, Z-score -0.7, T-score -1.8, osteopenia, 5.0% decrease from previous, 9.4% decrease from baseline (<5% change is not significant). Prior: BMD 1.020 g/cm2. Baseline: BMD 1.070 g/cm2. IDENTIFIED RISK FACTORS: Menopause, right oophorectomy. HISTORY OF FRACTURE: None listed. MEDICATIONS: Vitamin D. MM/XR DEXA axial skeleton IMPRESSION: 1. DIAGNOSIS: Osteopenia based on the lowest T-score value of -1.8 in the lumbar spine applying World Health Organization criteria. 2. 10-YEAR FRACTURE RISK PREDICTION, FRAX: Major osteoporotic fracture (clinical spine, forearm, hip or shoulder) 3.0%. Hip fracture 0.1%. 3. Treatment Recommendations: NOF guidelines recommend consideration for treatment in postmenopausal women and men age 50 and older presenting with the following: -A hip or vertebral (clinical or morphometric) fracture. -T-score less than or equal to -2.5 at the femoral neck or spine after appropriate evaluation to exclude secondary causes. -Low bone mass at the hip or spine and a 10-year fracture probability by FRAX of greater than or equal to 3% for hip fracture or greater than or equal to 20% for major osteoporotic fracture based on the [place] adapted WHO algorithm. 4. Other Recommendations: All treatment decisions require clinical judgment and consideration of individual patient factors, including patient preferences, comorbidities, previous drug use, risk factors not captured in the FRAX model (e.g. frailty, falls, vitamin D deficiency, increased bone turnover, interval significant decline in bone density) and possible under or overestimation of fracture risk by FRAX. Additional medical evaluation for secondary cause of low bone mineral density may be appropriate. FUTURE SCAN RECOMMENDATION: People with diagnosed cases of osteoporosis or at high risk for fracture should have regular bone mineral density tests. For patients eligible for Medicare, routine testing is allowed once every 2 years. The testing frequency can be increased to one year for patients who have rapidly progressing disease, those who are receiving or discontinuing medical therapy to restore bone mass, or have additional risk factors.
== END 2023-05-25 11:00 | disposition home or self-care (01) ==
LOC: HO.MAMMO 10:59
PROVIDERS: PCP Internal Medicine; Visit Provider Internal Medicine
DX: M81.0 Age-related osteoporosis without current pathological fracture (principal); M85.80 Other specified disorders of bone density and structure, unspecified site
CPT/HCPCS: 77080

== ENCOUNTER 2023-09-13 13:22 | Outpatient (AMB) | payer MEDICARE, MEDICAID, SELFPAY ==
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
[2023-09-13 14:28] VITALS: BP 128/84; PULSE 71; TEMP 36.6; O2SAT 98; BMI 35.9
== END 2023-09-13 15:03 | disposition home or self-care (01) ==
PROVIDERS: PCP Internal Medicine; Visit Provider Registered Nurse Emergency
DX: H66.90 Otitis media, unspecified, unspecified ear (principal)
CPT/HCPCS: 99213

== ENCOUNTER 2023-12-06 12:55 | Outpatient (AMB) | payer MEDICARE, MEDICAID, SELFPAY ==
[2023-12-06 13:25] VITALS: BP 120/84; PULSE 78; O2SAT 93; BMI 37.1
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
== END 2023-12-06 14:15 | disposition home or self-care (01) ==
PROVIDERS: PCP Internal Medicine; Visit Provider Internal Medicine
DX: E11.65 Type 2 diabetes mellitus with hyperglycemia (principal); I10 Essential (primary) hypertension; E66.812 Obesity, class 2; Z68.36 Body mass index [BMI] 36.0-36.9, adult; K21.9 Gastro-esophageal reflux disease without esophagitis; E78.00 Pure hypercholesterolemia, unspecified

== ENCOUNTER → 2023-12-06 12:55 | Outpatient (BNVA) | payer MEDICARE, MEDICAID, SELFPAY | PROVIDERS: PCP Internal Medicine; Visit Provider Internal Medicine | DX: E11.65 Type 2 diabetes mellitus with hyperglycemia (principal); I10 Essential (primary) hypertension; K21.9 Gastro-esophageal reflux disease without esophagitis; E78.00 Pure hypercholesterolemia, unspecified; E66.01 Morbid (severe) obesity due to excess calories; Z68.36 Body mass index [BMI] 36.0-36.9, adult; Z79.84 Long term (current) use of oral hypoglycemic drugs; Z79.899 Other long term (current) drug therapy; Z23 Encounter for immunization | CPT/HCPCS: 83036; 90471; 90656; 99212 ==

== ENCOUNTER 2024-01-04 12:40 | Outpatient (AMB) | payer MEDICARE, MEDICAID, SELFPAY ==
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
[2024-01-04 13:32] VITALS: BP 120/82; PULSE 78; TEMP 36.9; O2SAT 97; BMI 36.9
== END 2024-01-04 14:49 | disposition home or self-care (01) ==
PROVIDERS: PCP Internal Medicine; Visit Provider Physician Assistant
DX: R09.82 Postnasal drip (principal); J02.9 Acute pharyngitis, unspecified; Z13.9 Encounter for screening, unspecified

== ENCOUNTER → 2024-01-04 12:40 | Outpatient (BNVA) | payer MEDICARE, MEDICAID, SELFPAY | PROVIDERS: PCP Internal Medicine; Visit Provider Physician Assistant | DX: J02.9 Acute pharyngitis, unspecified (principal); R09.82 Postnasal drip | CPT/HCPCS: 87880; 99212 ==

== ENCOUNTER 2024-01-29 09:14 | Outpatient (AMB) | payer MEDICARE, MEDICAID, SELFPAY ==
[2024-01-29 09:25] VITALS: BP 130/80; PULSE 72; TEMP 36.7; O2SAT 97; BMI 36.9
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
== END 2024-01-29 10:01 | disposition home or self-care (01) ==
PROVIDERS: PCP Internal Medicine; Visit Provider Physician Assistant
DX: S46.812A Strain of other muscles, fascia and tendons at shoulder and upper arm level, left arm, initial encounter (principal)

== ENCOUNTER → 2024-01-29 09:14 | Outpatient (BNVA) | payer MEDICARE, MEDICAID, SELFPAY | PROVIDERS: PCP Internal Medicine; Visit Provider Physician Assistant | DX: S46.812A Strain of other muscles, fascia and tendons at shoulder and upper arm level, left arm, initial encounter (principal); X58.XXXA Exposure to other specified factors, initial encounter; Y93.9 Activity, unspecified; Y92.9 Unspecified place or not applicable; Y99.9 Unspecified external cause status | CPT/HCPCS: 99212 ==

== ENCOUNTER 2024-02-18 11:19 | Outpatient (AMB) | payer MEDICARE, MEDICAID, SELFPAY ==
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
[2024-02-18 12:16] VITALS: BP 116/70; PULSE 95; TEMP 36.9; O2SAT 97; BMI 36.3
== END 2024-02-18 13:20 | disposition home or self-care (01) ==
PROVIDERS: PCP Internal Medicine; Visit Provider Nurse Practitioner Family
DX: J06.9 Acute upper respiratory infection, unspecified (principal)

== ENCOUNTER 2024-02-18 11:19 | Outpatient (REF) | payer MEDICARE, MEDICAID, SELFPAY ==
[2024-02-18 17:56] LABS: Influenza A PCR NEGATIVE (Negative); Influenza B PCR NEGATIVE (Negative); Resp Syncy Virus RNA Qual PCR NEGATIVE (Negative); SARS COV2 PCR INHOUSE NEGATIVE (Negative)
== END 2024-02-18 11:20 | disposition home or self-care (01) ==
LOC: HO.LNP 11:19
PROVIDERS: PCP Internal Medicine; Visit Provider Nurse Practitioner Family
DX: J06.9 Acute upper respiratory infection, unspecified (principal)
CPT/HCPCS: 0241U; 94640; 99212

== ENCOUNTER 2024-02-21 14:28 | Outpatient (AMB) | payer MEDICARE, MEDICAID, SELFPAY ==
[2024-02-21 14:29] VITALS: BP 162/98; PULSE 74; O2SAT 96; BMI 36.2
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
[2024-02-21 15:00] VITALS: BP 138/90
== END 2024-02-21 15:06 | disposition home or self-care (01) ==
LOC: HO.HMCH 14:28
PROVIDERS: PCP Internal Medicine
DX: J45.41 Moderate persistent asthma with (acute) exacerbation (principal)

== ENCOUNTER → 2024-02-21 14:28 | Outpatient (BNVA) | payer MEDICARE, MEDICAID, SELFPAY | PROVIDERS: PCP Internal Medicine | DX: J45.41 Moderate persistent asthma with (acute) exacerbation (principal) | CPT/HCPCS: 96127; 99212 ==

== ENCOUNTER 2024-02-28 11:01 | Outpatient (REF) | payer MEDICARE, MEDICAID, SELFPAY ==
--- NOTE | ~2024-02-28 | XR_ITS ---
EXAMINATION: XR CHEST 2 VIEWS HISTORY: J45.41 - Moderate persistent asthma with (acute) exacerbation COMPARISON: Comparison is made with the prior examination dated 03/19/2020. FINDINGS: PA and lateral views of the chest are submitted. There are low lung volumes. The lungs are grossly clear. There is no pleural effusion, pneumothorax, or pulmonary vascular congestion. The heart is normal in size. There is degenerative disc disease of the spine. XR/XR chest 2V IMPRESSION: Low lung volumes. The lungs are grossly clear. Electronically signed by: Shashi Rock MD 02/29/2024 03:13 PM FABIAN
== END 2024-02-28 11:02 | disposition home or self-care (01) ==
LOC: HO.XRAY 11:01
PROVIDERS: PCP Internal Medicine; Visit Provider Internal Medicine
DX: J45.41 Moderate persistent asthma with (acute) exacerbation (principal)
CPT/HCPCS: 71046; 96127; 99212

== ENCOUNTER 2024-02-28 11:01 | Outpatient (AMB) | payer MEDICARE, MEDICAID, SELFPAY ==
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
[2024-02-28 11:03] VITALS: BP 148/92; PULSE 93; TEMP 36.1; O2SAT 95
== END 2024-02-28 11:30 | disposition home or self-care (01) ==
PROVIDERS: PCP Internal Medicine; Visit Provider Internal Medicine
DX: J45.41 Moderate persistent asthma with (acute) exacerbation (principal); J45.909 Unspecified asthma, uncomplicated

== ENCOUNTER → 2024-02-28 11:42 | Outpatient (BNV) | payer MEDICARE, MEDICAID, SELFPAY | PROVIDERS: PCP Internal Medicine; Visit Provider Radiology Diagnostic Radiology | DX: J45.41 Moderate persistent asthma with (acute) exacerbation (principal) | CPT/HCPCS: 71046 ==

== ENCOUNTER 2024-03-06 11:21 | Outpatient (AMB) | payer MEDICARE, MEDICAID, SELFPAY ==
[2024-03-06 11:31] VITALS: BP 138/82; PULSE 81; O2SAT 96; BMI 35.9
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
== END 2024-03-06 12:35 | disposition home or self-care (01) ==
PROVIDERS: PCP Internal Medicine; Visit Provider Internal Medicine
DX: Z00.00 Encounter for general adult medical examination without abnormal findings (principal); E11.65 Type 2 diabetes mellitus with hyperglycemia; E66.01 Morbid (severe) obesity due to excess calories; Z68.36 Body mass index [BMI] 36.0-36.9, adult; Z12.31 Encounter for screening mammogram for malignant neoplasm of breast; E78.00 Pure hypercholesterolemia, unspecified; I10 Essential (primary) hypertension; J45.20 Mild intermittent asthma, uncomplicated; G43.909 Migraine, unspecified, not intractable, without status migrainosus

== ENCOUNTER → 2024-03-06 11:21 | Outpatient (BNVA) | payer MEDICARE, MEDICAID, SELFPAY | PROVIDERS: PCP Internal Medicine; Visit Provider Internal Medicine | DX: Z00.00 Encounter for general adult medical examination without abnormal findings (principal); E11.65 Type 2 diabetes mellitus with hyperglycemia; E78.00 Pure hypercholesterolemia, unspecified; I10 Essential (primary) hypertension; J45.20 Mild intermittent asthma, uncomplicated; G43.909 Migraine, unspecified, not intractable, without status migrainosus; E66.01 Morbid (severe) obesity due to excess calories; Z68.36 Body mass index [BMI] 36.0-36.9, adult; Z71.3 Dietary counseling and surveillance | CPT/HCPCS: 83036; 96127 ==

== ENCOUNTER 2024-06-07 08:21 | Outpatient (REF) | payer MEDICARE, MEDICAID, SELFPAY ==
[2024-06-07 08:39] LABS: MANUAL DIFF FLAG NO
[2024-06-07 09:02] LABS: Basophils Absolute Auto 0.1 X10*3/uL (0.0-0.2); Basophils Percent Auto 0.6 % (0-2); Eosinophils Absolute Auto 0.3 X10*3/uL (0.0-0.4); Eosinophils Percent Auto 3.9 % (0-4); Hemoglobin 13.2 g/dl (12.0-16.0); Imm Gran Abs Auto 0.03 X10*3/uL (0.00-0.03); Imm Gran Pct Auto 0.4 % (0.0-0.4); Lymphocytes Absolute Auto 2.2 X10*3/uL (1.2-4.9); Lymphocytes Percent Auto 27.9 % (20-40); Mean Corpuscular Hemoglobin 28.6 pg (27.0-33.0); Mean Corpuscular Volume 86.8 fL (80.0-98.0); Mean Platelet Volume 9.7 fL (9.4-12.3); Monocytes Absolute Auto 0.8 X10*3/uL (0.1-1.2); Monocytes Percent Auto 10.6 % (2-11); Neutrophils Absolute Auto 4.5 x10*3/uL (2.0-8.3); Neutrophils Percent Auto 56.6 % (45-73); Platelet Count 310 X10*3/uL (160-400); Red Blood Count 4.61 X10*6/uL (4.20-5.50); White Blood Count 7.9 X10*3/uL (4.8-10.8)
[2024-06-07 09:09] LABS: Estimated Average Glucose 169 mg/dL; Hemoglobin A1C 204.3103 umol/L; Hemoglobin A1c % 7.5 % (<6.0); Total Hemoglobin (HGBA1C) 3482.4075 umol/L
[2024-06-07 09:56] LABS: Appearance Urine Clear; Color Urine Yellow; Glucose Urine UA Negative (Negative); Leukocyte Esterase Urine Negative (Negative); Nitrite Urine Negative (Negative); PH 6.5 (5.0-9.0); UMIC TRIGGER UACC YES; Urine Blood Moderate (2+) (Negative); Urine Ketones Negative (Negative); Urine Protein 30 (1+) mg/dL (Neg-Trace)
[2024-06-07 09:59] LABS: Alanine Aminotransferase 30 U/L (0-31); Albumin Level 4.4 g/dL (3.5-5.0); Alkaline Phosphatase 80 U/L (39-117); Anion Gap 14 (12-20); Aspartate Amino Transferase 27 U/L (5-31); Bilirubin Total 0.9 mg/dL (0.0-1.0); Blood Urea Nitrogen 13 mg/dL (9-16); Calcium 9.3 mg/dL (8.4-10.2); Carbon Dioxide 28 mmol/L (22-29); Chloride 103 mmol/L (96-108); Cholesterol 141 mg/dL (<200); Estimated Glomerular Filt Rate > 60; Glucose Random 162 mg/dL (60-115); HDL Cholesterol 47 mg/dL (>40); LDL Cholesterol Calculated 66 mg/dL (<100); Potassium 4.7 mmol/L (3.3-5.1); Sodium 140 mmol/L (135-145); Total Protein 7.3 g/dL (6.5-8.0); Triglycerides 142 mg/dL (<150)
[2024-06-07 10:05] LABS: Bacteria Urine None Seen (None Seen); Hyaline Casts Urine 0-2 /LPF (0-2); RBC Urine >20 /HPF (0-2); Squamous Epithelial Cell Urine 0-2 /HPF (0-2); WBC Urine 0-5 /HPF (0-5)
[2024-06-07 10:21] LABS: Free T4 (Free Thyroxine) 0.74 ng/dL (0.71-1.85); Thyroid Stimulating Hormone 1.96 uIU/mL (0.32-4.0); Vitamin D 25-OH Total 32.2 ng/mL (>30)
[2024-06-07 10:25] LABS: Folate 12.1 ng/mL (> or = 4.0); Vitamin B12 781 pg/mL (200-900)
[2024-06-07 10:50] LABS: Creatinine Urine 92.21 mg/dL; Microalbum/Creatinine Ratio Ur 156.1 ug/mg cr (<30)
== END 2024-06-07 08:22 | disposition home or self-care (01) ==
LOC: HO.LAB 08:21
PROVIDERS: PCP Internal Medicine; Visit Provider Internal Medicine
DX: E11.65 Type 2 diabetes mellitus with hyperglycemia (principal); E78.00 Pure hypercholesterolemia, unspecified
CPT/HCPCS: 36415; 80053; 80061; 81001; 81003; 82043; 82306; 82570; 82607; 82746; 83036; 84439; 84443; 85025

== ENCOUNTER 2024-06-12 10:55 | Outpatient (AMB) | payer MEDICARE, MEDICAID, SELFPAY ==
[2024-06-12 11:00] VITALS: BP 136/80; PULSE 89; O2SAT 97; BMI 36.1
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
--- OUTSIDE RECORDS SUMMARY | 2024-06-12 13:09 | XMS_ITS | Patient Health Record ---
[facility] Address [address] [address] Care Team Providers Care Ocular Care Aide Name Role Phone Amy Kinganjumjeancarlos Primary Care Provider Anne Weaver Unavailable [phone] Allergies Allergen (clinical drug ingredient) Drug/Non Drug Allergy documented on EMR Reaction Allergy Type Onset Date Status Shrimp Flavor short of breath Drug Allergy Active hydrochlorothiazide Hydrochlorothiazide trouble breathing Drug Allergy Active Shellfish (FN) Shellfish-derived Products hives,short of breath Drug Allergy Active Reason For Referral No Information Medications Medication SIG (Take, Route, Frequency, Duration) Notes Start Date End Date Status Vitamin D Active Fluticasone Propionate 50 MCG/ACT 1 spray in each nostril Nasally Once a day for 30 day(s) 05/13/2020 Active Pravastatin Sodium 10 MG 1 tablet Orally Once a day for 30 day(s) 05/13/2020 Active Lisinopril 2.5 MG 1 tablet Orally Once a day 05/13/2020 Active Loratadine 10 MG Oral for 30 A ctive Montelukast Sodium 10 MG Oral for 90 Active Verapamil HCl Active EpiPen Active SUMAtriptan Succinate 100 MG 1 tablet at least 2 hours between doses as needed Orally Twice a day 05/13/2020 Active Yesica Aspirin EC Low Dose 81 MG 1 tablet Orally Once a day for 30 day(s) 05/13/2020 Active Vitamin E Active Vitamin C Active Ventolin HFA 108 (90 Base) MCG/ACT 1 puff as needed Inhalation every 4 hrs 05/13/2020 Active Social History Tobacco Use: Social History Observation Description Date Details (start date - stop date) Never Smoker NA - NA Tobacco Use/Smoking Question Answer Notes Are you a: nonsmoker Additional Findings: Tobacco Non-User Current no n-smoker Alcohol Screen Question Answer Notes Did you have a drink containing alcohol in the p ast year? No Points 0 Interpretation Negative Tobacco use other than smoking: Question Answer Notes Are you an other tobacco user? No Problems Problem Type SNOMED Code ICD Code Onset Dates Problem Status W/U Status Risk Notes Problem Acquired hallux valgus (53503395) Hallux valgus (acquired), right foot (M20.11) Active confirmed Problem 222807688 Fixation hardware in foot (Z96.7) Active confirmed Plan Of Treatment Pending Test Test Name Order Date X ray : Foot, left 3V 05/15/2020 X ray : Foot, right 3V 05/15/2020 Insurance Providers Payer Name Payer Address Payer Phone Subscriber Number Group Number Insured Name Patient Relationship to Insured Coverage Start Date Coverage End Date [facility] [employer] Claims [place] [id number] KIRIT Roberto [id number] Trena Burton Self - patient is the insured Medical (General) History Medical History History ICD Code asthma Headaches/Migraines Measles Chicken pox Joint implants/screws allergy shots Surgical History Surgery Date(Month/Year) carpal tunnel surgery left hand 2002 carpal tunnel surgery right hand 2009 bunionectomy left- Lapiplasty 03/13/2019
== END 2024-06-12 11:34 | disposition home or self-care (01) ==
LOC: HO.HMCH 10:56
PROVIDERS: PCP Internal Medicine; Visit Provider Internal Medicine
DX: E11.65 Type 2 diabetes mellitus with hyperglycemia (principal); E78.00 Pure hypercholesterolemia, unspecified; K21.9 Gastro-esophageal reflux disease without esophagitis; I10 Essential (primary) hypertension; J45.20 Mild intermittent asthma, uncomplicated; G47.10 Hypersomnia, unspecified

== ENCOUNTER → 2024-06-12 10:55 | Outpatient (BNVA) | payer MEDICARE, OTHER, SELFPAY | PROVIDERS: PCP Internal Medicine; Visit Provider Internal Medicine | DX: E11.65 Type 2 diabetes mellitus with hyperglycemia (principal); E78.00 Pure hypercholesterolemia, unspecified; K21.9 Gastro-esophageal reflux disease without esophagitis; I10 Essential (primary) hypertension; J45.20 Mild intermittent asthma, uncomplicated; G47.10 Hypersomnia, unspecified | CPT/HCPCS: 96127; 99212 ==

== ENCOUNTER 2024-07-18 14:12 | Outpatient (REF) | payer MEDICARE, MEDICAID, SELFPAY ==
--- NOTE | ~2024-07-18 | US_ITS ---
EXAMINATION: US KIDNEY BILATERAL HISTORY: R31.9 - Hematuria, unspecified TECHNIQUE: Real-time grayscale ultrasound imaging of the kidneys was performed and images were reviewed. COMPARISON: Comparison is made with the prior examination dated 08/21/2014. FINDINGS: Right kidney: The right kidney measures 12.1 x 4.1 x 4.0 cm. Renal parenchymal echotexture and thickness are normal. There are no masses. Again seen is fullness of the renal pelvis. No calculi are identified. Left Kidney: The left kidney measures 11.5 x 5.0 x 4.4 cm. Renal parenchymal echotexture and thickness are normal. There is a 1.1 x 0.8 x 0.9 cm cyst in the interpolar region. Again seen is fullness of the renal pelvis. No calculi are identified. US/US renal BI IMPRESSION: 1.1 cm left renal cyst. Bilateral renal pelvic fullness without change. Electronically signed by: Shashi Rock MD 07/18/2024 02:56 PM EDT
== END 2024-07-18 14:13 | disposition home or self-care (01) ==
LOC: HO.US 14:12
PROVIDERS: PCP Internal Medicine; Visit Provider Internal Medicine
DX: R31.9 Hematuria, unspecified (principal)
CPT/HCPCS: 76775

== ENCOUNTER → 2024-07-18 14:14 | Outpatient (BNV) | payer MEDICARE, MEDICAID, SELFPAY | PROVIDERS: PCP Internal Medicine; Visit Provider Radiology Diagnostic Radiology | DX: N28.1 Cyst of kidney, acquired (principal); N13.30 Unspecified hydronephrosis | CPT/HCPCS: 76775 ==

== ENCOUNTER → 2024-08-22 11:02 | Outpatient (REF) | payer MEDICARE, MEDICAID, SELFPAY | LOC: HO.SL 11:02 | PROVIDERS: PCP Internal Medicine; Visit Provider Internal Medicine | DX: G47.30 Sleep apnea, unspecified (principal) | CPT/HCPCS: 95806 ==

== ENCOUNTER 2024-10-03 11:23 | Outpatient (AMB) | payer MEDICARE, MEDICAID, SELFPAY | END 2024-10-03 11:26 | disposition home or self-care (01) | LOC: HO.HMGAL 11:23 | PROVIDERS: PCP Internal Medicine; Visit Provider Registered Nurse Emergency | DX: J30.89 Other allergic rhinitis (principal) | CPT/HCPCS: 95115; 95165 ==

== ENCOUNTER 2024-10-06 08:58 | Outpatient (AMB) | payer MEDICARE, MEDICAID, SELFPAY ==
[2024-10-06 09:07] VITALS: BP 134/80; PULSE 90; RESP 18; TEMP 36.2; O2SAT 96; BMI 36.5
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
== END 2024-10-06 09:51 | disposition home or self-care (01) ==
LOC: HO.HMCH 08:59
PROVIDERS: PCP Internal Medicine; Visit Provider Internal Medicine
DX: E11.65 Type 2 diabetes mellitus with hyperglycemia (principal); I10 Essential (primary) hypertension; E78.00 Pure hypercholesterolemia, unspecified; E66.01 Morbid (severe) obesity due to excess calories; Z68.36 Body mass index [BMI] 36.0-36.9, adult; K21.9 Gastro-esophageal reflux disease without esophagitis; R31.9 Hematuria, unspecified; J45.20 Mild intermittent asthma, uncomplicated; G47.33 Obstructive sleep apnea (adult) (pediatric); Z13.9 Encounter for screening, unspecified

== ENCOUNTER → 2024-10-06 08:58 | Outpatient (BNVA) | payer MEDICARE, MEDICAID, SELFPAY | PROVIDERS: PCP Internal Medicine; Visit Provider Internal Medicine | DX: E11.65 Type 2 diabetes mellitus with hyperglycemia (principal); I10 Essential (primary) hypertension; E78.00 Pure hypercholesterolemia, unspecified; E66.01 Morbid (severe) obesity due to excess calories; Z68.36 Body mass index [BMI] 36.0-36.9, adult; K21.9 Gastro-esophageal reflux disease without esophagitis; R31.9 Hematuria, unspecified; J45.20 Mild intermittent asthma, uncomplicated; G47.33 Obstructive sleep apnea (adult) (pediatric) | CPT/HCPCS: 83036; 99212 ==

== ENCOUNTER 2024-12-04 09:51 | Outpatient (REF) | payer MEDICARE, MEDICAID, SELFPAY | END 2024-12-04 09:52 | disposition home or self-care (01) | LOC: HO.LAB 09:51 | PROVIDERS: PCP Internal Medicine; Visit Provider Nurse Practitioner Family | DX: R31.29 Other microscopic hematuria (principal); Z79.899 Other long term (current) drug therapy | CPT/HCPCS: 81003; 88112; 99202 ==

== ENCOUNTER 2024-12-04 09:51 | Outpatient (AMB) | payer MEDICARE, MEDICAID, SELFPAY ==
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
== END 2024-12-04 10:54 | disposition home or self-care (01) ==
LOC: HO.HUSH 09:52
PROVIDERS: PCP Internal Medicine; Visit Provider Nurse Practitioner Family
DX: Z13.9 Encounter for screening, unspecified (principal); R31.29 Other microscopic hematuria
CPT/HCPCS: 99203

== ENCOUNTER 2024-12-11 13:54 | Outpatient (AMB) | payer MEDICARE, MEDICAID, SELFPAY | END 2024-12-11 13:55 | disposition home or self-care (01) | LOC: HO.HMGAL 13:54 | PROVIDERS: PCP Internal Medicine; Visit Provider Registered Nurse Emergency | DX: J30.89 Other allergic rhinitis (principal) | CPT/HCPCS: 95115; 95165 ==

== ENCOUNTER 2024-12-21 11:33 | Outpatient (AMB) | payer MEDICARE, MEDICAID, SELFPAY ==
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
== END 2024-12-21 12:11 | disposition home or self-care (01) ==
LOC: HO.HSM 11:34
PROVIDERS: PCP Internal Medicine; Referring Provider Internal Medicine; Visit Provider Registered Nurse
DX: G43.909 Migraine, unspecified, not intractable, without status migrainosus (principal); G44.229 Chronic tension-type headache, not intractable; M47.812 Spondylosis without myelopathy or radiculopathy, cervical region
CPT/HCPCS: 99214

== ENCOUNTER → 2024-12-21 11:33 | Outpatient (BNVA) | payer MEDICARE, MEDICAID, SELFPAY | PROVIDERS: PCP Internal Medicine; Referring Provider Internal Medicine; Visit Provider Registered Nurse | DX: G43.009 Migraine without aura, not intractable, without status migrainosus (principal); G44.229 Chronic tension-type headache, not intractable; M47.812 Spondylosis without myelopathy or radiculopathy, cervical region | CPT/HCPCS: 99212 ==

== ENCOUNTER 2025-01-01 11:02 | Outpatient (AMB) | payer MEDICARE, MEDICAID, SELFPAY | END 2025-01-01 11:03 | disposition home or self-care (01) | LOC: HO.HMGAL 11:02 | PROVIDERS: PCP Internal Medicine; Visit Provider Registered Nurse Emergency | DX: J30.89 Other allergic rhinitis (principal) | CPT/HCPCS: 95115; 95165 ==

== ENCOUNTER 2025-01-17 13:46 | Outpatient (REF) | payer MEDICARE, MEDICAID, SELFPAY ==
--- NOTE | ~2025-01-17 | US_ITS ---
EXAMINATION: US RETROPERITONEUM HISTORY: R31.29 - Other microscopic hematuria TECHNIQUE: Real-time grayscale ultrasound imaging of the kidneys was performed and images were reviewed. COMPARISON: Comparison is made with the prior renal ultrasound dated 07/18/2024. FINDINGS: Right kidney: The right kidney measures 12.7 x 5.0 x 6.5 cm. Renal parenchymal echotexture and thickness are normal. There are no masses. There is an extrarenal pelvis. There is no hydronephrosis or renal calculi. Left Kidney: The left kidney measures 11.7 x 5.5 x 6.6 cm. Renal parenchymal echotexture and thickness are normal. There are no masses. There is a 2.2 x 1.4 x 1.4 cm calculus at the UPJ causing mild hydronephrosis. The urinary bladder is unremarkable. Bilateral ureteral jets are identified. Before voiding, the urinary bladder measured 12.0 x 6.1 x 8.8 cm, for an estimated volume of 337 mL. After voiding, the urinary bladder measured 4.9 x 2.9 x 5.4 cm, for an estimated volume of 40.4 mL. US/US retroperitoneal comp IMPRESSION: 1. 2.2 x 1.4 x 1.4 cm left UPJ calculus causing mild hydronephrosis. 2. Post void bladder residual of 40.4 mL. Electronically signed by: Shashi Rock MD 01/17/2025 02:51 PM [facility]
== END 2025-01-17 13:47 | disposition home or self-care (01) ==
LOC: HO.HMGCX 13:46
PROVIDERS: PCP Internal Medicine; Visit Provider Nurse Practitioner Family
DX: R31.29 Other microscopic hematuria (principal)
CPT/HCPCS: 76770

== ENCOUNTER → 2025-01-17 13:52 | Outpatient (BNV) | payer MEDICARE, MEDICAID, SELFPAY | PROVIDERS: PCP Internal Medicine; Visit Provider Radiology Diagnostic Radiology | DX: N13.2 Hydronephrosis with renal and ureteral calculous obstruction (principal) | CPT/HCPCS: 76770 ==

== ENCOUNTER 2025-01-22 12:25 | Outpatient (REF) | payer MEDICARE, MEDICAID, SELFPAY ==
[2025-01-22 17:19] LABS: Resp Syncy Virus RNA Qual PCR NEGATIVE (Negative); SARS COV2 PCR INHOUSE NEGATIVE (Negative)
== END 2025-01-22 12:26 | disposition home or self-care (01) ==
LOC: HO.LAB 12:25
PROVIDERS: PCP Internal Medicine; Visit Provider Nurse Practitioner Family
DX: J45.41 Moderate persistent asthma with (acute) exacerbation (principal); R09.89 Other specified symptoms and signs involving the circulatory and respiratory systems; F17.210 Nicotine dependence, cigarettes, uncomplicated
CPT/HCPCS: 87637; 99212

== ENCOUNTER 2025-01-22 12:25 | Outpatient (AMB) | payer MEDICARE, MEDICAID, SELFPAY ==
[2025-01-22 12:37] VITALS: BP 150/84; PULSE 65; TEMP 36.8; O2SAT 97; BMI 36.1
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
== END 2025-01-22 13:14 | disposition home or self-care (01) ==
PROVIDERS: PCP Internal Medicine; Visit Provider Nurse Practitioner Family
DX: J45.41 Moderate persistent asthma with (acute) exacerbation (principal)

== ENCOUNTER 2025-01-25 10:20 | Outpatient (AMB) | payer MEDICARE, MEDICAID, SELFPAY ==
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
== END 2025-01-25 12:25 | disposition home or self-care (01) ==
LOC: HO.HUSH 10:21
PROVIDERS: PCP Internal Medicine; Visit Provider Urology
DX: N20.0 Calculus of kidney (principal)
CPT/HCPCS: 52000; 99213

== ENCOUNTER → 2025-01-25 10:20 | Outpatient (BNVA) | payer MEDICARE, MEDICAID, SELFPAY | PROVIDERS: PCP Internal Medicine; Visit Provider Urology | DX: N20.0 Calculus of kidney (principal) | CPT/HCPCS: 52000; 99212 ==

== ENCOUNTER → 2025-01-26 12:34 | Outpatient (BNV) | payer MEDICARE, MEDICAID, SELFPAY | PROVIDERS: PCP Internal Medicine; Visit Provider Radiology Diagnostic Radiology | DX: N20.0 Calculus of kidney (principal) | CPT/HCPCS: 74018 ==